=== PATIENT | male | born 1960 | race Caucasian/White ===

== ENCOUNTER 2021-02-14 20:04 | Inpatient (IN) ==
[2021-02-14] MEDS ORDERED: SODIUM CHLORIDE 0.9% 1000ML 1,000 ML IV ONE (20:45)
[2021-02-14] MEDS ORDERED: ONDANSETRON INJ 2 MG/ML 2 ML VIAL IV STA (20:45)
[2021-02-14] MEDS ORDERED: MoRPHine SULFATE 2 MG/ML CARP IV PRN (20:45)
[2021-02-14] MEDS ORDERED: PROMETHAZINE 6.25 MG/50.25 ML BAG IV STA (20:45)
--- NOTE | 2021-02-14 20:49 | Emergency Department Note ---
Impression & Plan Acute dehydration, Vomiting and diarrhea, Failure of outpatient treatment, COVID-19 ED Provider Note NAME: XAVIER LACEY AGE: 60 SEX: M : 1960 ARRIVES VIA: Walk-In INFORMANT: [Patient] ED PROVIDER(S): [Fabio Curtis MD] CHIEF COMPLAINT: Vomiting HISTORY OF PRESENT ILLNESS: The patient is a 60-year-old male who presents to the ED with vomiting. The patient was diagnosed with Covid 2 days ago. He was having a lot of GI complaints at the time. CT of the abdomen and pelvis did not show any obstruction. Patient was not having any respiratory difficulty. He was felt stable for discharge and was given Zofran to help with the symptoms. The patient presents today stating that the Zofran is not helping. He still vomiting, he still has a lot of diarrhea although, his abdominal pain is less severe. He has started coughing some but he does not feel short of breath. He has a headache, body aches and is still running a fever with chills. The patie nt states that he is afraid he is dehydrated. He states he cannot even keep water down. REVIEW OF SYSTEMS: See HPI for pertinent positives and negatives. A total of ten systems were reviewed and were otherwise negative. PMHx/PSHx: See Below SOCIAL HISTORY: See Below. PHYSICAL EXAM: GENERAL: Patient is in no acute distress. HEENT: No acute trauma, normocephalic atraumatic, mucous membranes moist, no nasal congestion, no scleral icterus. NECK: No stridor, no adenopathy, no meningismus, trachea is midline. LUNGS: Clear to auscultation bilaterally, no wheeze, no rhonchi, breath sounds equal. Occasional dry cough noted. HEART: Without murmurs gallops or rubs, regular rate and rhythm. ABDOMEN: Soft, mildly diffusely tender, bowel sounds positive, no hernias, no peritonitis. EXTREMITIES: No cyanosis or edema, full range of motion of all the joints without pain or difficulty, no signs for acute trauma. NEUROLOGIC: Oriented x 3, no acute motor or sensory deficits, no focal weakness. SKIN: No rash, no jaundice, no diaphoresis. DIFFERENTIAL DIAGNOSIS: Dehydration, electrolyte imbalance, anemia, viral illness, COVID-19, bowel obstruction, gastritis, GI bleeding, failed outpatient treatment. EMERGENCY DEPARTMENT COURSE/PROCEDURES: MEDICAL DECISION MAKING: There is no leukocytosis or concerning anemia. There is a normal platelet count. No significant electrolyte abnormality or kidney failure. No worrisome liver enzyme elevation. Abdominal series did not show pneumonia, free air or bowel obstruction. There was some gas within the bowel noted all the way down to the rectum. On my exam, the patient did not have peritonitis. He was not hypoxic or toxic in appearance. The patient was given IV Tylenol, IV morphine, IV Zofran and IV Phenergan. He was given IV saline, 1 L. Patient presents with persistent vomiting despite the Zofran already prescribed. He is still having diarrhea. He still having flulike symptoms. He is Covid positive. I do think the patient deserves a hospital stay for hydration and symptomatic care. It appears the Covid virus has caused primarily GI symptoms rather than respiratory symptoms. The patient was feeling improved after some treatment here in the ED, I did speak with the case management team, the on-call hospitalist was consulted. Past Med/Surg History Medical History No significant medical problems Social History Smoking Status: Never smoker Preferred Language: Maori Feels Safe at Home: Yes Allergies Allergies Allergy/AdvReac Type Severity Reaction Status Date / Time Penicillins Allergy Unknown HIVES Verified 02/14/21 21:18 Home Meds Home Medications Medication Instructions Recorded Confirmed acetaminophen [Tylenol Extra 1,000 mg PO Q6H PRN 02/12/21 02/14/21 Strength] Previous Rx's Medication Instructions Recorded ondansetron HCl [Zofran] 4 mg PO Q6H PRN #12 tab 02/12/21 Results & Data (ED) Vital Signs Vital Signs - 24 hr 02/14/21 20:08 02/14/21 20:58 02/14/21 21:45 Temperature 37.4 C Temperature Source Temporal Artery Scan Pulse Rate 93 H Pulse Rate [Right Finger] 81 Respiratory Rate 20 18 Respiratory Effort / Characteristics Non-Labored Spontaneous Respiratory Depth Normal Normal Blood Pressure 139/79 Blood Pressure [Right Arm] 152/90 H Blood Pressure Mean 99 Blood Pressure Mean [Right Arm] 110 Blood Pressure Position Sitting Blood Pressure Position [Right Arm] Lying Pulse Oximetry 99 95 96 Oxygen Delivery Method Room Air Room Air Room Air Sepsis Recent Fever Within 48 Hours No Sepsis New/Unexplained Change in Mental Status No Sepsis Action Taken by Nursing No Action Required Home Medications Current Medication List: was personally reviewed by me Laboratory Data Attestation: I reviewed the patient's lab results. Result diagrams: 02/14/21 20:56 02/14/21 20:56 Lab Results 02/14/21 02/14/21 Range/Units 20:56 20:56 WBC 5.91 (4.8-10.8) K/uL RBC 5.29 (4.7-6.1) M/uL Hgb 17.2 (14.0-18.0) g/dL Hct 47.6 (42-52) % MCV 90.0 (80-100) fL MCH 32.5 (25-34) pg MCHC 36.1 H (32-36) g/dL RDW Std Deviation 43.1 (36.4-46.3) fL RDW Coeff of Stacey 13.1 (11.5-14.5) % Plt Count 143 (130-400) K/uL MPV 8.6 (7.4-10.4) fL Immature Gran % (Auto) 0.2 % Neut % (Auto) 65.8 % Lymph % (Auto) 24.0 % Stark % (Auto) 9.8 % Eos % (Auto) 0.0 % Baso % (Auto) 0.2 % Neut # (Auto) 3.89 (1.4-6.5) K/uL Lymph # (Auto) 1.42 (1.2-3.4) K/uL Stark # (Auto) 0.58 (0.11-0.59) K/uL Eos # (Auto) 0.00 (0-0.5) K/uL Baso # (Auto) 0.01 (0-0.2) K/uL Immature Gran # (Auto) 0.01 (0.00-0.02) K/uL Sodium 133 L (136-145) mmol/L Potassium (3.5-5.1) mmol/L Chloride 101 (98-107) mmol/L Carbon Dioxide 25 (21-32) mmol/L Anion Gap 7.0 (3-11) BUN 10 (7-18) mg/dl Creatinine 1.05 (0.6-1.4) mg/dl Est Cr Clr Drug Dosing 77.6 ml/min Est GFR ( Amer) 89.6 Est GFR (Non-Af Amer) 77.3 BUN/Creatinine Ratio 9.4 L (10-20) Glucose 82 (70-99) mg/dl Calcium 9.0 (8.5-10.1) mg/dl Magnesium (1.8-2.4) mg/dl Total Bilirubin 0.5 (0.2-1) mg/dl AST (15-37) U/L ALT 72 (12-78) U/L Alkaline Phosphatase 130 H (45-117) U/L Total Protein 7.4 (6.4-8.2) gm/dl Albumin 3.7 (3.4-5.0) gm/dl Globulin 3.7 (2.5-4.0) gm/dl Albumin/Globulin Ratio 1.0 (0.9-2) Administered Medications Morphine Sulfate (Morphine Sulfate 2 Mg/Ml Carp) 2 mg IV Q30M PRN PRN Reason: Pain Stop: 02/28/21 20:44 Last Admin: 02/14/21 20:57 Dose: 2 mg Documented by: [id number] Discontinued Medications Sodium Chloride (Nss 1000ml) 1,000 mls @ 999 mls/hr IV .Q1H1M ONE Stop: 02/14/21 21:45 Last Admin: 02/14/21 20:57 Dose: 999 mls/hr Documented by: [id number] Promethazine HCl (Phenergan) 6.25 mg in 50.25 mls @ 201 mls/hr IV NOW STA Stop: 02/14/21 20:59 Last Admin: 02/14/21 20:57 Dose: 201 mls/hr Documented by: [id number] Ondansetron HCl (Ondansetron Inj 2 Mg/Ml 2 Ml Vial) 4 mg IV NOW STA Stop: 02/14/21 20:46 Last Admin: 02/14/21 20:57 Dose: 4 mg Documented by: [id number] Imaging Data Attestation: I personally reviewed and interpreted this imaging study as fol lows: My Impression: Abdominal series: There is no bowel obstruction, pneumonia or free air. There is gas within the large and small bowel. The gas was seen down to the rectum. Discharge Plan Visit Data Chief Complaint: Illness Stated Complaint: COVID+, NAUSEA, LOW OXYGEN LEVEL ED Provider: Fabio Curtis Discharge Problem: Acute dehydration, Vomiting and diarrhea, Failure of outpatient treatment, COVID-19 Patient Disposition: Admitted As Inpatient Condition: Good Forms Stand Alone Forms: [facility] Prescriptions Prescriptions: No Action acetaminophen [Tylenol Extra Strength] 500 mg Tablet 1,000 mg PO Q6H PRN (Reason: Pain) RF: 0 ondansetron HCl [Zofran] 4 mg tablet 4 mg PO Q6H PRN (Reason: nausea and vomiting) Qty: 12 RF: 0 Referrals Referrals: Lucian Calloway DO [Primary Care Provider] -
[2021-02-14 21:10] LABS: Basophils # (auto) 0.01 K/uL (0-0.2); Basophils % (auto) 0.2 %; Hematocrit (blood only) 47.6 % (42-52); Hemoglobin 17.2 g/dL (14.0-18.0); Immature Granulocytes # (auto) 0.01 K/uL (0.00-0.02); Immature Granulocytes % (auto) 0.2 %; Lymphocytes # (auto) 1.42 K/uL (1.2-3.4); Mean Corpuscular Hemoglobin 32.5 pg (25-34); Mean Corpuscular Hgb Conc 36.1 g/dL (32-36); Mean Platelet Volume 8.6 fL (7.4-10.4); Monocytes # (auto) 0.58 K/uL (0.11-0.59); Monocytes % (auto) 9.8 %; Neutrophils # (auto) 3.89 K/uL (1.4-6.5); Neutrophils % (auto) 65.8 %; Platelet Count 143 K/uL (130-400); RDW Coefficient of Variation 13.1 % (11.5-14.5); RDW Standard Deviation 43.1 fL (36.4-46.3); Red Blood Count 5.29 M/uL (4.7-6.1); White Blood Count 5.91 K/uL (4.8-10.8)
[2021-02-14 21:30] LABS: Albumin Level 3.7 gm/dl (3.4-5.0); BUN Creatinine Ratio 9.4 (10-20); Creatinine Clr Calc Pharmacy 77.6 ml/min; Est GFR (African American) 89.6; Est GFR (Non-African American) 77.3
[2021-02-14 21:31] LABS: Bilirubin,Total 0.5 mg/dl (0.2-1); Globulin 3.7 gm/dl (2.5-4.0); Total Protein 7.4 gm/dl (6.4-8.2)
[2021-02-14] MEDS ORDERED: PROMETHAZINE HCL 12.5 MG in SODIUM CHLORIDE 0.9% 50 ML IV PRN (21:52)
[2021-02-14] MEDS ORDERED: ACETAMINOPHEN 1,000 MG/100 ML VIAL IV PRN (21:52)
[2021-02-14 23:06] LABS: Allen Test Pos (Pos); Base Excess ABG -1.7 mEq/L (-9-1.8); HCO3 ABG 21 mmol/L (19-24); Oxygen Saturation ABG 93.6 % (90-95); PCO2 ABG 32 mmHg (35-46); PO2 ABG 64 mmHg (80-95); pH ABG 7.45 (7.35-7.45)
[2021-02-14 23:25] LABS: Potassium 3.5 mmol/L (3.5-5.1)
[2021-02-14 23:30] LABS: Magnesium 1.7 mg/dl (1.8-2.4)
[2021-02-14] MEDS ORDERED: ACETAMINOPHEN 325 MG TAB PO STA (23:47)
[2021-02-14] MEDS ORDERED: dexAMETHasone 6 MG in SYRINGE 0 ML IV STA (23:49)
--- NOTE | 2021-02-14 23:53 | History & Physical Report ---
Date of Service February 14, 2021 Assessment & Plan (1) Acute hypoxemic respiratory failure: Severe COVID-19 pneumonia with low PO2 noted on ABG Superimposed bacterial infection, no sepsis Diarrhea symptoms secondary to above rule out C. difficile hx Crohn's disease status post surgery. Medical Decadron course indicated for hypoxemia Stool C. difficile Clear liquids for now Repeat CT abdomen pelvis if abdominal pain progresses. DVT prophylaxis per Lovenox SQ Full code Text document was generated using [employer] voice recognition software. It may contain grammatical or spelling errors. Kindly contact undersigned for clarification of any documentation item in question. History of Present Illness Chief Complaint: Covid positive, nausea, vomiting, diarrhea Primary Care Prov ider: Lucian Calloway DO History obtained from patient and records. Medical history significant for Crohn's disease status post surgery. 3 days history of achy abdominal pain left-sided with dry Heaving, no emesis. Loose stools watery with low-grade fever and chills. Dry cough symptoms without chest pain and S OB.. Patient seen at the ER. Covid [address] abdomen pelvis : 1. Mild asymmetric groundglass densities of the basal right lower lobe are suggestive of an infectious or inflammatory pneumonitis. Correlate with Covid status. 2. No bowel obstruction or bowel wall thickening. 3. Colonic diverticulosis without acute diverticulitis. 4. Partial sigmoid colon resection with colocolonic anastomosis. 5. Prior cholecystectomy and appendectomy. Patient sent home from the ER. Worsening watery diarrhea symptoms with emesis the last few days, poor appetite. Belly pain not as bad as per patient. Junky cough symptoms without chest pain and shortness of breath. Lowest O2 sats at the ER 94 on room air. 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 Allergies Allergy/AdvReac Type Severity Reaction Status Date / Time Penicillins Allergy Unknown HIVES Verified 02/14/21 21:18 Home Medications Medication Instructions Recorded Confirmed Type acetaminophen [Tylenol Extra 1,000 mg PO Q6H PRN 02/12/21 02/14/21 History Strength] ondansetron HCl [Zofran] 4 mg PO Q6H PRN #12 tab 02/12/21 02/14/21 Rx Past Med/Surg History Medical History No significant medical problems Social History Smoking Status: Never smoker Hx Alcohol Use: Yes Hx Substance Use: No Preferred Language: Lithuanian Detective Required: No Beliefs That Will Affect Care: None Current Living Situation: Spouse Other Information That Helps Us Care for You: No Feels Safe at Home: Yes Safety Concerns: Feels Safe At This Time Assistive Devices: Glasses Review of Systems Review of Systems: As per HPI, all 10 systems reviewed, all other ROS negative Physical Exam Physical Exam: GENERAL: Comfortable, pleasant, looks younger for stated age, no respiratory distress SKIN: Normal color, warm HEENT: [place] palpebral conjunctivae, no ptosis, dry buccal mucosa NECK : Supple, no tenderness CHEST : CTA, no tenderness HEART : RRR, no obvious murmurs ABDOMEN: Some distention, no overt tenderness EXTREMITIES : No LE swelling/tenderness, no other conspicuous deformities noted NEUROLOGIC : Coherent, no facial asymmetry, no other gross focality Results & Data Results & Data ([facility]) Vital Signs (Past 12 Hours) Vital Signs Temp Pulse Pulse Resp BP BP Pulse Ox 02/14/21 22:36 39.3 C H 85 16 140/71 96 02/14/21 21:45 81 18 152/90 H 96 02/14/21 20:58 95 02/14/21 20:08 37.4 C 93 H 20 139/79 99 Laboratory Results Laboratory Results WBC 5.91 K/uL (4.8-10.8) 02/14/21 20:56 RBC 5.29 M/uL (4.7-6.1) 02/14/21 20:56 Hgb 17.2 g/dL (14.0-18.0) 02/14/21 20:56 Hct 47.6 % (42-52) 02/14/21 20:56 MCV 90.0 fL (80-100) 02/14/21 20:56 MCH 32.5 pg (25-34) 02/14/21 20:56 MCHC 36.1 g/dL (32-36) H 02/14/21 20:56 RDW Std Deviation 43.1 fL (36.4-46.3) 02/14/21 20:56 RDW Coeff of Stacey 13.1 % (11.5-14.5) 02/14/21 20:56 Plt Count 143 K/uL (130-400) 02/14/21 20:56 MPV 8.6 fL (7.4-10.4) 02/14/21 20:56 Immature Gran % (Auto) 0.2 % 02/14/21 20:56 Neut % (Auto) 65.8 % 02/14/21 20:56 Lymph % (Auto) 24.0 % 02/14/21 20:56 [place] % (Auto) 9.8 % 02/14/21 20:56 Eos % (Auto) 0.0 % 02/14/21 20:56 Baso % (Auto) 0.2 % 02/14/21 20:56 Neut # (Auto) 3.89 K/uL (1.4-6.5) 02/14/21 20:56 Lymph # (Auto) 1.42 K/uL (1.2-3.4) 02/14/21 20:56 [place] # (Auto) 0.58 K/uL (0.11-0.59) 02/14/21 20:56 Eos # (Auto) 0.00 K/uL (0-0.5) 02/14/21 20:56 Baso # (Auto) 0.01 K/uL (0-0.2) 02/14/21 20:56 Immature Gran # (Auto) 0.01 K/uL (0.00-0.02) 02/14/21 20:56 ABG pH 7.45 (7.35-7.45) 02/14/21 22:45 ABG pCO2 32 mmHg (35-46) L 02/14/21 22:45 ABG pO2 64 mmHg (80-95) L 02/14/21 22:45 ABG HCO3 21 mmol/L (19-24) 02/14/21 22:45 ABG O2 Saturation 93.6 % (90-95) 02/14/21 22:45 ABG Base Excess -1.7 mEq/L (-9-1.8) 02/14/21 22:45 Celestine Test Pos (Pos) 02/14/21 22:45 Barometric Pressure 734.7 mm/Hg 02/14/21 22:45 Oxygen Given ROOM AIR 02/14/21 22:45 Sodium 133 mmol/L (136-145) L 02/14/21 20:56 Potassium 3.5 mmol/L (3.5-5.1) 02/14/21 22:45 Chloride 101 mmol/L (98-107) 02/14/21 20:56 Carbon Dioxide 25 mmol/L (21-32) 02/14/21 20:56 Anion Gap 7.0 (3-11) 02/14/21 20:56 BUN 10 mg/dl (7-18) 02/14/21 20:56 Creatinine 1.05 mg/dl (0.6-1.4) 02/14/21 20:56 Est Cr Clr Drug Dosing 77.6 ml/min 02/14/21 20:56 Est GFR ( Amer) 89.6 02/14/21 20:56 Est GFR (Non-Af Amer) 77.3 02/14/21 20:56 BUN/Creatinine Ratio 9.4 (10-20) L 02/14/21 20:56 Glucose 82 mg/dl (70-99) 02/14/21 20:56 Calcium 9.0 mg/dl (8.5-10.1) 02/14/21 20:56 Magnesium 1.7 mg/dl (1.8-2.4) L 02/14/21 22:45 Total Bilirubin 0.5 mg/dl (0.2-1) 02/14/21 20:56 AST 37 U/L (15-37) 02/14/21 22:45 ALT 72 U/L (12-78) 02/14/21 20:56 Alkaline Phosphatase 130 U/L (45-117) H 02/14/21 20:56 Total Protein 7.4 gm/dl (6.4-8.2) 02/14/21 20:56 Albumin 3.7 gm/dl (3.4-5.0) 02/14/21 20:56 Globulin 3.7 gm/dl (2.5-4.0) 02/14/21 20:56 Albumin/Globulin Ratio 1.0 (0.9-2) 02/14/21 20:56 Diagnostic Findings Chest x-ray/abdominal x-ray as per my interpretation: Bibasilar infiltrates, no bowel obstruction EKG as per my interpretation : Rate 75, NSR, normal axis, incomplete RBBB, low voltage
[2021-02-15] MEDS ORDERED: DOXYCYCLINE HYCLATE 100 MG in DEXTROSE 5% 100 ML IV STA (01:08)
[2021-02-15] MEDS ORDERED: DEXAMETHASONE SOD INJ 4 MG/ML VIAL ONE (01:12)
[2021-02-15] MEDS ORDERED: ALBUTEROL HFA 8 GM INHALER INH ONE (01:35)
[2021-02-15] MEDS ORDERED: MAGNESIUM SULFATE / D5W 1 GM/100 ML BAG IV ONE (01:35)
[2021-02-15] MEDS ORDERED: POTASSIUM CHLORIDE 40 MEQ in SODIUM CHLORIDE 0.9% 1000ML 1,000 ML IV ONE (01:35)
[2021-02-15] MEDS: cefTRIAXone SODIUM 2,000 MG in DEXTROSE 5% 50 ML IV SCH (06:07)
[2021-02-15 06:48] LABS: Hematocrit (blood only) 46.9 % (42-52); Hemoglobin 16.4 g/dL (14.0-18.0); Immature Granulocytes # (auto) 0.01 K/uL (0.00-0.02); Immature Granulocytes % (auto) 0.2 %; Lymphocytes # (auto) 0.84 K/uL (1.2-3.4); Lymphocytes % (auto) 17.6 %; Mean Corpuscular Hemoglobin 31.5 pg (25-34); Mean Platelet Volume 8.8 fL (7.4-10.4); Monocytes # (auto) 0.13 K/uL (0.11-0.59); Monocytes % (auto) 2.7 %; Neutrophils # (auto) 3.79 K/uL (1.4-6.5); Neutrophils % (auto) 79.5 %; Platelet Count 130 K/uL (130-400); RDW Standard Deviation 42.7 fL (36.4-46.3); Red Blood Count 5.21 M/uL (4.7-6.1); White Blood Count 4.77 K/uL (4.8-10.8)
[2021-02-15 07:16] LABS: Albumin Level 3.5 gm/dl (3.4-5.0); BUN Creatinine Ratio 12.8 (10-20); C Reactive Protein 2.51 mg/dl (0-0.29); Calcium 8.3 mg/dl (8.5-10.1); Creatinine Clr Calc Pharmacy 97.8 ml/min; Est GFR (African American) 111.6; Est GFR (Non-African American) 96.3; Magnesium 2.3 mg/dl (1.8-2.4); Potassium 3.9 mmol/L (3.5-5.1)
[2021-02-15 07:20] LABS: Albumin Globulin Ratio 1.1 (0.9-2); Bilirubin,Total 0.3 mg/dl (0.2-1); Ferritin 1783.4 ng/ml (8-388); Globulin 3.1 gm/dl (2.5-4.0); Total Protein 6.6 gm/dl (6.4-8.2)
--- NOTE | 2021-02-15 07:21 | XRay Report ---
A PA CHEST WITH ABDOMINAL SERIES CLINICAL HISTORY: Vomiting. FINDINGS: An AP upright radiograph is compared to study dated 02/12/2021. The cardiomediastinal silhouette is un remarkable. There is mild elevation of the right hemidiaphragm. There are bibasilar airspace opacitie s. No large pleural effusion or pneumothorax is seen. The bony thorax is grossly intact. Supine and erect abdominal radiographs are correlated with abdominal CT dated 02/12/2021. Cholecystect azeem clips are noted in the right upper quadrant. There is a nonobstructed abdominal bowel gas pattern . No evidence of intraperitoneal free air is seen. There are no abnormal abdominal calcifications. Th e lumbosacral spine and bony pelvis appear intact. IMPRESSION: 1. There are bibasilar airspace opacities. This could represent atelectasis versus an infectious/infl ammatory pneumonitis. Clinical correlation will be required. 2. Nonobstructed abdominal bowel gas pattern. ACT 112: Negative or not required by law. Electronically signed by: Fabio Rodriguez M.D. 02/15/2021 7:19 AM
[2021-02-15] MEDS: ALBUTEROL HFA 8 GM INHALER INH SCH ×4 (07:53→19:19)
[2021-02-15] MEDS ORDERED: PNEUMOCOCCAL Polysaccharide Vaccine 25mcg/0.5mL vial/Syr IM ONE (08:00)
[2021-02-15] MEDS: ENOXAPARIN INJ 40 MG/0.4 ML SYR SQ SCH (08:01)
[2021-02-15] MEDS: ACETAMINOPHEN 325 MG TAB PO PRN (12:24)
--- NOTE | 2021-02-15 15:08 | Hospitalist Progress Note ---
Date of Service February 15, 2021 Assessment & Plan (1) Acute hypoxemic respiratory failure: resolved Severe COVID-19 pneumonia with low PO2 noted on ABG no hypoxia or respiratory symptoms at present remains in room air no SOB Xray of chest and abdomen : 1. There are bibasilar airspace opacities. This could represent atelectasis versus an infectious/inflammatory pneumonitis. Clinical correlation will be required. 2. Nonobstructing abdominal bowel gas pattern. elevated Ferritin , C reactive protein due to covid 19 infection cont on IV Decadron supportive care no indication for Remdesivir as no hypoxia Diarrhea symptoms secondary to COVID 19 infection: symptoms improved , only one loose BM today no nausea or abdominal pain added Lactinex /pro biotics diet advanced to solid per pt's request hx Crohn's disease status post surgery. no bowel obs noted in Xray of abdomen diarrhea due to viral illness IV fluid , advance diet as tolerated DVT prophylaxis per Lovenox SQ Full code Disposition : expected to be discharged home when medically stable Admission and Anticipated Discharge Date Admission Date: February 14, 2021 Subjective Follow up visit for COVID 19 infection with GI symptoms /viral pneumonitis : pt reports feeling a bit better since yesterday had only one episode of loose stool , no blood in stool nausea has improved, tolerating clears willing to try solid diet no fever or chills no cough or SOB , no hypoxia, Review of Systems Review of Systems: All systems reviewed & are unremarkable except as noted in Subjective Physical Exam Physical Exam: Physical exam: General: No acute distress, alert awake oriented x3 HEENT: PERRLA, EOMI, Heart: Regular S1-S2, no carotid bruit, no JVD, no lower extremity edema Lungs: Clear to auscultate, no wheeze or rales Abdomen: Soft nontender, no organomegaly Extremity: No cyanosis, no deformity, normal strength 5 out of 5 with upper and lower Neuro: No focal neurological deficit normal speech, normal visual field, Motor strength : normal both upper and lower extremity, sensation intact Psych: Alert awake oriented x3, normal affect Results & Data Results & Data ([facility]) Vital Signs (Past 12 Hours) Vital Signs Temp Pulse Resp BP Pulse Ox 02/15/21 14:59 75 20 95 02/15/21 10:54 74 20 94 02/15/21 07:56 77 18 94 02/15/21 07:23 37.1 C 86 18 114/82 95 02/15/21 03:45 36.8 C 87 17 123/79 98
[2021-02-15] MEDS ORDERED: LACTATED RINGER'S 1,000 ML IV SCH (17:00)
[2021-02-15] MEDS: DOXYCYCLINE HYCLATE 100 MG CAP PO SCH (19:54)
[2021-02-15] MEDS: LACTOBACILLUS ACIDOPHILUS 1 GM PACK PO SCH (21:22)
[2021-02-16] MEDS: ACETAMINOPHEN 325 MG TAB PO PRN ×3 (05:01→22:16)
[2021-02-16] MEDS: cefTRIAXone SODIUM 2,000 MG in DEXTROSE 5% 50 ML IV SCH (06:02)
[2021-02-16 07:14] LABS: BUN Creatinine Ratio 13.1 (10-20); C Reactive Protein 1.54 mg/dl (0-0.29); Calcium 8.3 mg/dl (8.5-10.1); Creatinine Clr Calc Pharmacy 96.2 ml/min; Est GFR (African American) 111.1; Est GFR (Non-African American) 95.8; Magnesium 1.7 mg/dl (1.8-2.4); Potassium 3.5 mmol/L (3.5-5.1)
[2021-02-16 07:27] LABS: D Dimer 230 ug/L FEU (0-500)
[2021-02-16] MEDS: LACTOBACILLUS ACIDOPHILUS 1 GM PACK PO SCH ×3 (07:32→17:02)
[2021-02-16] MEDS ORDERED: ALBUTEROL HFA 8 GM INHALER INH PRN (07:52)
[2021-02-16] MEDS: ALBUTEROL HFA 8 GM INHALER INH SCH (08:19)
[2021-02-16] MEDS: DOXYCYCLINE HYCLATE 100 MG CAP PO SCH (08:24)
[2021-02-16] MEDS: ENOXAPARIN INJ 40 MG/0.4 ML SYR SQ SCH ×2 (08:25→08:28)
[2021-02-16] MEDS ORDERED: dexAMETHasone 6 MG in SYRINGE 0 ML IV SCH (09:00)
[2021-02-16] MEDS ORDERED: MAGNESIUM SULFATE / D5W 1 GM/100 ML BAG IV ONE (14:00)
--- NOTE | 2021-02-16 17:52 | Hospitalist Progress Note ---
Date of Service February 16, 2021 Assessment & Plan (1) Acute hypoxemic respiratory failure: resolved on presentation Severe COVID-19 pneumonia with low PO2 noted on ABG no hypoxia or respiratory symptoms at present remains in room air no SOB Xray of chest and abdomen : 1. There are bibasilar airspace opacities. This could represent atelectasis versus an infectious/inflammatory pneumonitis. Clinical correlation will be required. 2. Nonobstructing abdominal bowel gas pattern. elevated Ferritin , C reactive protein due to covid 19 infection -level has improved will DC Abx was started on IV Decadron -having persisted GI symptoms -nausea -possible due to steroid ? dc Decadron for now supportive care no indication for Remdesivir as no hypoxia Diarrhea symptoms secondary to COVID 19 infection: ongoing diarrhea with nausea /abdominal discomfort worsening nausea with Lactinex /pro biotics-ordered to on hold very poor appetite , pt is asked to try liquid diet if he prefers hx Crohn's disease status post surgery. no bowel obs noted in Xray of abdomen stable DVT prophylaxis per Lovenox SQ Full code Disposition : expected to be discharged home when medically stable Admission and Anticipated Discharge Date Admission Date: February 14, 2021 Subjective Follow up visit for COVID 19 infection with GI symptoms /viral pneumonitis : pt reports of worsening of GI symptoms /not feeling well poor appetite , persistent nausea , abdominal discomfort Pro Biotic made his stomach upset worse no fever or chills no cough has diarrhea /loose stool multiple times today Review of Systems Review of Systems: As per HPI, all 10 systems reviewed, all other ROS negative Physical Exam Physical Exam: Physical exam: General: No acute distress, alert awake oriented x3 HEENT: PERRLA, EOMI, Heart: Regular S1-S2, no carotid bruit, no JVD, no lower extremity edema Lungs: Clear to auscultate, no wheeze or rales Abdomen: Soft nontender, no organomegaly Extremity: No cyanosis, no deformity, normal strength 5 out of 5 with upper and lower Neuro: No focal neurological deficit normal speech, normal visual field, Motor strength : normal both upper and lower extremity, sensation intact Psych: Alert awake oriented x3, normal affect Results & Data Results & Data ([facility]) Vital Signs (Past 12 Hours) Vital Signs Temp Pulse Resp BP Pulse Ox 02/16/21 16:08 36.6 C 74 18 121/81 96 02/16/21 11:45 36.9 C 77 18 111/72 96 02/16/21 07:42 37.0 C 86 18 106/71 94
[2021-02-16] MEDS: D5W AND NSS 1,000 ML IV SCH (20:40)
[2021-02-16] MEDS: ONDANSETRON INJ 2 MG/ML 2 ML VIAL IV PRN (22:16)
[2021-02-17] MEDS: D5W AND NSS 1,000 ML IV SCH (06:39)
[2021-02-17] MEDS: ACETAMINOPHEN 325 MG TAB PO PRN (07:48)
[2021-02-17] MEDS: ONDANSETRON INJ 2 MG/ML 2 ML VIAL IV PRN (07:48)
[2021-02-17] MEDS: ENOXAPARIN INJ 40 MG/0.4 ML SYR SQ SCH (07:49)
[2021-02-17] MEDS ORDERED: guaiFENesin/DEXTROM SYRUP 100MG/10MG 5ML UDC PO PRN (09:23)
[2021-02-17] MEDS ORDERED: PROCHLORPERAZINE 10 MG in SYRINGE 8 ML IV PRN (09:36)
[2021-02-17 09:57] LABS: Basophils # (auto) 0.01 K/uL (0-0.2); Basophils % (auto) 0.1 %; Hematocrit (blood only) 40.9 % (42-52); Hemoglobin 14.8 g/dL (14.0-18.0); Immature Granulocytes # (auto) 0.01 K/uL (0.00-0.02); Immature Granulocytes % (auto) 0.1 %; Lymphocytes % (auto) 12.5 %; Mean Corpuscular Volume 88.5 fL (80-100); Mean Platelet Volume 8.8 fL (7.4-10.4); Monocytes # (auto) 0.46 K/uL (0.11-0.59); Monocytes % (auto) 5.8 %; Neutrophils % (auto) 81.5 %; Platelet Count 167 K/uL (130-400); RDW Coefficient of Variation 13.1 % (11.5-14.5); RDW Standard Deviation 42.4 fL (36.4-46.3); Red Blood Count 4.62 M/uL (4.7-6.1); White Blood Count 7.98 K/uL (4.8-10.8)
[2021-02-17 10:05] LABS: D Dimer 300 ug/L FEU (0-500)
[2021-02-17] MEDS ORDERED: OPTIRAY 320 125ml IV ONE (10:13)
[2021-02-17 10:23] LABS: BUN Creatinine Ratio 15.8 (10-20); Calcium 7.9 mg/dl (8.5-10.1); Creatinine Clr Calc Pharmacy 90.3 ml/min; Est GFR (Non-African American) 93.2; Magnesium 1.9 mg/dl (1.8-2.4); Potassium 3.3 mmol/L (3.5-5.1)
[2021-02-17 10:26] LABS: Albumin Globulin Ratio 0.9 (0.9-2); Bilirubin,Total 0.4 mg/dl (0.2-1); Globulin 3.2 gm/dl (2.5-4.0); Phosphorus 1.9 mg/dl (2.5-4.9); Total Protein 6.2 gm/dl (6.4-8.2)
--- NOTE | 2021-02-17 10:31 | CT Scan Report ---
CT abd pelvis IV con only CLINICAL HISTORY: Abdominal pain. Possible bowel obstruction. Covid positive patient. COMPARISON STUDY: February 12, 2021 TECHNIQUE: The patient was scanned in a dynamic helical fashion during intravenous administration of 118 cc of Optiray 320. A dose lowering technique was utilized adhering to the principles of ALARA. CT DOSE: FINDINGS: Lower chest: There are multifocal pulmonary airspace opacities consistent with a multifocal pneumonia . Liver: The contrast-enhanced liver is normal in size, contour, and attenuation. There is no intrahepa tic biliary ductal dilatation. The hepatic veins and portal veins are patent. Gallbladder: Surgically absent Spleen: Normal in size and attenuation. Pancreas: Unremarkable. Adrenal glands: Unremarkable. Kidneys: There are bilateral renal cysts the largest of which is located on the right measuring 33 mm . There is no hydronephrosis Bowel: There are no transition zones to indicate bowel obstruction. There is a surgical anastomotic s uture line within the sigmoid. There is no evidence of acute diverticulitis. By history the appendix is surgically absent. Peritoneum: There is no intraperitoneal free air or abdominal ascites. There is a small fat-containin g umbilical hernia. Vasculature: The abdominal aorta is normal in course and caliber. Adenopathy: None. Pelvic viscera: The bladder, and pelvic viscera are unremarkable. Skeletal structures: There is gas present within the left anterior abdominal wall likely secondary to an injection site. IMPRESSION: 1. No evidence of bowel obstruction. No evidence of free air 2. Surgically absent appendix. No evidence of acute diverticulitis 3. Bilateral pulmonary airspace opacities consistent with a multifocal pneumonia ACT 112: Negative or not required by law. Electronically signed by: Balwinder Campoverde M.D. 02/17/2021 10:29 AM
[2021-02-17 10:47] LABS: Mean Corpuscular Hgb Conc 36.2 g/dL (32-36)
[2021-02-17] MEDS: DOXYCYCLINE HYCLATE 100 MG in DEXTROSE 5% 100 ML IV SCH ×2 (10:50→21:40)
--- NOTE | 2021-02-17 11:00 | CT Scan Report ---
CT angio chest PE protocol CT DOSE: 1245.34 mGycm HISTORY: 60 years-old Male with PE. Acute cough with shortness of breath. COVID Positive. TECHNIQUE: Multiple CTA images of the chest were obtained after the intravenous administration of 118 ml Optiray 320. Coronal and sagittal MIPS were obtained from the axial data set and were submitted for review. All measurements were obtained according to NASCET criteria. A dose lowering technique w as utilized adhering to the principles of ALARA. COMPARISON: CT abdomen and pelvis of same day, chest radiograph 02/12/2021 FINDINGS: CTA: Mild cardiomegaly. No pericardial effusion. No thoracic aortic aneurysm or dissection. Patency of the imaged great vessels. Unremarkable pulmonary artery. No pulmonary emboli identified. CT CHEST: Unremarkable thyroid. Enlarged right hilar lymph node, 1.3 cm. Subcentimeter prominent mediastinal an d left hilar lymph nodes measure up to 8-9 mm. No pneumothorax, pleural effusion or overt pulmonary e flora. Multifocal patchy groundglass and airspace peripheral and subpleural predominant opacities are noted within a multilobar distribution. Calcified granuloma of the left upper lobe. Central airways a re patent. No pneumoperitoneum. Cholecystectomy. Suggested hepatic steatosis. Unremarkable soft tissues. No acut e fracture. IMPRESSION: 1. No pulmonary emboli. 2. Bilateral peripheral and subpleural predominant groundglass and airspace opacities compatible with viral pneumonia. 3. Mild likely reactive adenopathy. 4. No pleural effusion. ACT 112: Negative or not required by law. The above report was generated using voice recognition software. It may contain grammatical, syntax o r spelling errors. Electronically signed by: Christophe Daley M.D. 02/17/2021 10:58 AM
[2021-02-17] MEDS ORDERED: POTASSIUM PHOS 3 MMOL/1 ML INFUSION IV STA (11:36)
--- NOTE | 2021-02-17 11:46 | Communication Note ---
Date of Service: February 17, 2021 pt continued to experience severe nausea , poor appetite developed cough no febrile episode so far CT chest and CT abdomen/pelvis ordered result reviewed ; no PE on CTA of chest , bilateral ground glass opacities confirms COVID 19 pneumonia resume IV Decadron cont Doxycycline for possible superimposed bacterial infection D/w [facility] pt will be started on IV Remdesivir-5 days tx 200 mg IV X1 day one then 200 mg daily for X4 days clinically pt does not evidence of progressive COVID 19 pneumonia /with out addition of Remdesivir can get worsening viral pneumonia /resp failure will also put consult for Yeimy ROGEL for further recommendations plan of care updated to pt over phone Roma Herndon MD
[2021-02-17] MEDS ORDERED: REMDESIVIR 200 MG in SODIUM CHLORIDE 0.9% 210 ML IV STA (11:54)
[2021-02-17] MEDS ORDERED: ACETAMINOPHEN HOME PACK 500 MG TABLET PO PRN (12:13)
[2021-02-17] MEDS ORDERED: POTASSIUM PHOSPHATE 9 MMOL in SODIUM CHLORIDE 0.9% 250 ML IV ONE (12:15)
[2021-02-17] MEDS: dexAMETHasone 6 MG in SYRINGE 0 ML IV SCH (12:58)
[2021-02-17] MEDS: ZINC SULFATE 220 MG CAPSULE PO SCH (12:58)
[2021-02-17] MEDS: POT PHOSPHATE MONOBASIC W/ SOD TAB PO SCH ×3 (12:59→21:40)
[2021-02-17] MEDS: CEROVITE ADV FORMULA TAB PO SCH (12:59)
[2021-02-17] MEDS ORDERED: D5NSS + 20MEQ KCL 20 MEQ/1,000 ML BAG IV SCH ×2 (15:15→15:45)
--- NOTE | 2021-02-17 16:19 | Hospitalist Progress Note ---
Date of Service February 17, 2021 Assessment & Plan (1) Acute hypoxemic respiratory failure: Severe COVID-19 pneumonia with low PO2 noted on ABG CT chest and CT abdomen/pelvis : result reviewed ; no PE on CTA of chest , bilateral ground glass opacities confirms COVID 19 pneumonia D/w [facility] pt will be started on IV Remdesivir-5 days tx 200 mg IV X1 day one then 200 mg daily for X4 days clinically pt have evidence of progressive COVID 19 pneumonia /with out addition of Remdesivir can get worsening viral pneumonia /resp failure consulted [facility] ID for further recommendations cont Doxycycline for possible superimposed bacterial infection Low K /Low phos : possible due to GI loss ordered for IV replacement repeat lab in AM given risk for cardiac arrhythmia with significant electrolyte abnormality pt will be placed on transmitter chief pt continued to experience severe nausea , poor appetite developed cough no febrile episode so far Diarrhea symptoms secondary to COVID 19 infection: ongoing diarrhea with nausea /abdominal discomfort worsening nausea with Lactinex /pro biotics-ordered to on hold very poor appetite , pt is asked to try liquid diet CT abdomen shows no obstruction of inflammation hx Crohn's disease status post surgery. no bowel obs noted in Xray of abdomen Ct abdomen as above DVT prophylaxis per Lovenox SQ Full code Disposition : cont to monitor in Tele Moderate to severe COVID 19 pneumonia Admission and Anticipated Discharge Date Admission Date: February 14, 2021 Subjective Follow up visit for COVID 19 infection with GI symptoms /viral pneumonitis : febrile episodes for past 24 hrs feels worse than before persistent cough and GI symptoms Review of Systems Constitutional: + fever Physical Exam Physical Exam: Physical exam: General: No acute distress, alert awake oriented x3 HEENT: PERRLA, EOMI, Heart: Regular S1-S2, no carotid bruit, no JVD, no lower extremity edema Lungs: + rales at base Abdomen: Soft nontender, no organomegaly Extremity: No cyanosis, no deformity, normal strength 5 out of 5 with upper and lower Neuro: No focal neurological deficit normal speech, normal visual field, Motor strength : normal both upper and lower extremity, sensation intact Psych: Alert awake oriented x3, normal affect Results & Data Results & Data ([facility]) Vital Signs (Past 12 Hours) Vital Signs Temp Pulse Resp BP Pulse Ox Pulse Ox 02/17/21 15:00 37.6 C H 88 18 128/83 94 02/17/21 10:53 37.2 C 84 18 109/72 92 02/17/21 07:37 37.7 C H 101 H 18 134/82 96 02/17/21 07:00 95
[2021-02-17] MEDS: ACETAMINOPHEN 500 MG TAB PO SCH ×2 (17:45→23:46)
[2021-02-17] MEDS: SODIUM CHLORIDE 0.9% 10ML FLUSH IV SCH (18:18)
[2021-02-17] MEDS: guaiFENesin 600 MG TABCR PO SCH (21:40)
[2021-02-18] MEDS: ACETAMINOPHEN 500 MG TAB PO SCH ×2 (06:04→13:02)
[2021-02-18] MEDS: DOXYCYCLINE HYCLATE 100 MG in DEXTROSE 5% 100 ML IV SCH (08:01)
[2021-02-18] MEDS: DOXYCYCLINE HYCLATE 100 MG CAP PO SCH ×2 (08:08→20:44)
[2021-02-18] MEDS: POT PHOSPHATE MONOBASIC W/ SOD TAB PO SCH ×2 (08:09→13:02)
[2021-02-18] MEDS: guaiFENesin 600 MG TABCR PO SCH ×2 (08:09→20:43)
[2021-02-18] MEDS: CEROVITE ADV FORMULA TAB PO SCH (08:09)
[2021-02-18] MEDS: ENOXAPARIN INJ 40 MG/0.4 ML SYR SQ SCH (08:10)
[2021-02-18] MEDS: ZINC SULFATE 220 MG CAPSULE PO SCH (08:11)
[2021-02-18 08:15] LABS: D Dimer 400 ug/L FEU (0-500)
[2021-02-18 08:19] LABS: BUN Creatinine Ratio 21.2 (10-20); Calcium 8.5 mg/dl (8.5-10.1); Creatinine Clr Calc Pharmacy 117.8 ml/min; Est GFR (African American) 120.4; Est GFR (Non-African American) 103.9; Potassium 3.7 mmol/L (3.5-5.1)
--- NOTE | 2021-02-18 08:35 | XRay Report ---
XR chest 1V portable CLINICAL HISTORY: cough/COVID 19 pneumonia COMPARISON STUDY: 02/14/2021 FINDINGS: The heart is borderline enlarged. There is slight progression in the bilateral pulmonary ai rspace opacities consistent with a multifocal pneumonia. There are no significant pleural effusions. There is no failure.[ IMPRESSION: Slight progression in the bilateral pulmonary airspace opacities consistent with a multif ocal pneumonia. ACT 112: Negative or not required by law. Electronically signed by: Balwinder Campoverde M.D. 02/18/2021 8:34 AM
[2021-02-18 08:46] LABS: Albumin Globulin Ratio 0.9 (0.9-2); Bilirubin,Total 0.4 mg/dl (0.2-1); Globulin 3.3 gm/dl (2.5-4.0); Phosphorus 2.7 mg/dl (2.5-4.9); Total Protein 6.3 gm/dl (6.4-8.2)
[2021-02-18] MEDS: dexAMETHasone 6 MG in SYRINGE 0 ML IV SCH (11:46)
[2021-02-18] MEDS: REMDESIVIR 100 MG in SODIUM CHLORIDE 0.9% 230 ML IV SCH (11:47)
[2021-02-18] MEDS: SODIUM CHLORIDE 0.9% 10ML FLUSH IV SCH (12:49)
[2021-02-18] MEDS ORDERED: ACETAMINOPHEN 325 MG TAB PO PRN (15:16)
--- NOTE | 2021-02-18 18:41 | Hospitalist Progress Note ---
Date of Service February 18, 2021 Assessment & Plan (1) Acute hypoxemic respiratory failure: Severe COVID-19 pneumonia with low PO2 noted on ABG CT chest and CT abdomen/pelvis : no PE on CTA of chest , bilateral ground glass opacities confirms COVID 19 pneumonia started on IV Remdesivir-5 days tx clinically pt have evidence of progressive COVID 19 pneumonia /with out addition of Remdesivir can get worsening viral pneumonia /resp failure consulted [employer] ID for further recommendations cont Doxycycline for possible superimposed bacterial infection Low K /Low phos : possible due to GI loss replaced improvement of GI symptoms at present Diarrhea symptoms secondary to COVID 19 infection: symptoms improved CT abdomen shows no obstruction of inflammation hx Crohn's disease status post surgery. no bowel obs noted in Xray of abdomen Ct abdomen as above DVT prophylaxis per Lovenox SQ Full code Disposition : cont to monitor in Tele Admission and Anticipated Discharge Date Admission Date: February 14, 2021 Subjective Follow up visit for COVID 19 infection with GI symptoms /viral pneumonitis : feels much better today no nausea /tolerating solid diet has been afebrile for past 24 hrs Review of Systems Review of Systems: As per HPI, all 10 systems reviewed, all other ROS negative Constitutional: + fever Physical Exam Physical Exam: Physical exam: General: No acute distress, alert awake oriented x3 HEENT: PERRLA, EOMI, Heart: Regular S1-S2, no carotid bruit, no JVD, no lower extremity edema Lungs: + rales at base Abdomen: Soft nontender, no organomegaly Extremity: No cyanosis, no deformity, normal strength 5 out of 5 with upper and lower Neuro: No focal neurological deficit normal speech, normal visual field, Motor strength : normal both upper and lower extremity, sensation intact Psych: Alert awake oriented x3, normal affect Results & Data Results & Data ([facility]) Vital Signs (Past 12 Hours) Vital Signs Temp Pulse Pulse Resp BP Pulse Ox Pulse Ox 02/18/21 15:22 62 02/18/21 15:08 36.6 C 80 18 135/84 96 02/18/21 11:10 36.9 C 74 18 131/79 94 02/18/21 08:25 66 02/18/21 07:09 36.9 C 74 18 131/82 92 02/18/21 07:00 91
[2021-02-19 06:58] LABS: BUN Creatinine Ratio 23.3 (10-20); Calcium 8.6 mg/dl (8.5-10.1); Creatinine Clr Calc Pharmacy 110.3 ml/min; Est GFR (African American) 117.7; Est GFR (Non-African American) 101.5; Potassium 3.7 mmol/L (3.5-5.1)
[2021-02-19 07:15] LABS: Ferritin 1983.9 ng/ml (8-388); Phosphorus 2.8 mg/dl (2.5-4.9)
[2021-02-19] MEDS: ENOXAPARIN INJ 40 MG/0.4 ML SYR SQ SCH (07:38)
[2021-02-19] MEDS: DOXYCYCLINE HYCLATE 100 MG CAP PO SCH ×2 (08:13→20:57)
[2021-02-19] MEDS: guaiFENesin 600 MG TABCR PO SCH ×2 (08:13→20:57)
[2021-02-19] MEDS: CEROVITE ADV FORMULA TAB PO SCH (08:13)
[2021-02-19] MEDS: ZINC SULFATE 220 MG CAPSULE PO SCH (08:14)
[2021-02-19] MEDS: PANTOprazole 40 MG TAB PO SCH (08:20)
[2021-02-19] MEDS: dexAMETHasone 4 MG TAB PO SCH (08:59)
[2021-02-19] MEDS: REMDESIVIR 100 MG in SODIUM CHLORIDE 0.9% 230 ML IV SCH (11:42)
--- NOTE | 2021-02-19 12:58 | Hospitalist Progress Note ---
Date of Service February 19, 2021 Assessment & Plan (1) Acute hypoxemic respiratory failure: Severe COVID-19 pneumonia with low PO2 noted on ABG clinically continues to improve after starting on Remdesivir no hypoxia, no SOB , has non productive cough CT chest and CT abdomen/pelvis : no PE on CTA of chest , bilateral ground glass opacities confirms COVID 19 pneumonia started on IV Remdesivir-( on #3/5 days tx ) pt is encouraged for prone ventilation and use incentive spirometry cont Doxycycline for possible superimposed bacterial infection Low K /Low phos : possible due to GI loss remains normal GI symptoms : nausea /vomiting has resolved Diarrhea symptoms secondary to COVID 19 infection: symptoms improved CT abdomen shows no obstruction of inflammation hx Crohn's disease status post surgery. no bowel obs noted in Xray of abdomen Ct abdomen as above DVT prophylaxis per Lovenox SQ Full code Disposition : plan for dc home in next 2 days after completion of IV remdesivir Admission and Anticipated Discharge Date Admission Date: February 14, 2021 Subjective Follow up visit for COVID 19 infection with GI symptoms /viral pneumonitis : clinically continues to improve in good spirit , energy level has continued to improve nausea/abdominal discomfort has resolved , tolerating diet no SOB or hypoxia has cough with productive sputum , no fever or chills no chest pain Review of Systems Review of Systems: All systems reviewed & are unremarkable except as noted in Subjective Physical Exam Physical Exam: Physical exam: General: No acute distress, alert awake oriented x3 HEENT: PERRLA, EOMI, Heart: Regular S1-S2, no carotid bruit, no JVD, no lower extremity edema Lungs: + rales at base Abdomen: Soft nontender, no organomegaly Extremity: No cyanosis, no deformity, normal strength 5 out of 5 with upper and lower Neuro: No focal neurological deficit normal speech, normal visual field, Motor strength : normal both upper and lower extremity, sensation intact Psych: Alert awake oriented x3, normal affect Results & Data Results & Data ([facility]) Vital Signs (Past 12 Hours) Vital Signs Temp Pulse Pulse Resp BP Pulse Ox Pulse Ox 02/19/21 07:32 36.6 C 59 L 18 129/82 94 02/19/21 07:30 65 02/19/21 07:00 94 02/19/21 03:48 36.8 C 63 18 126/80 96
[2021-02-19] MEDS: SODIUM CHLORIDE 0.9% 10ML FLUSH IV SCH (13:02)
[2021-02-20 07:44] LABS: Creatinine Clr Calc Pharmacy 110.3 ml/min; Est GFR (African American) 117.7; Est GFR (Non-African American) 101.5
[2021-02-20 07:48] LABS: Ferritin 1988.7 ng/ml (8-388)
[2021-02-20] MEDS: DOXYCYCLINE HYCLATE 100 MG CAP PO SCH ×2 (09:01→21:28)
[2021-02-20] MEDS: PANTOprazole 40 MG TAB PO SCH (09:01)
[2021-02-20] MEDS: guaiFENesin 600 MG TABCR PO SCH ×2 (09:02→21:28)
[2021-02-20] MEDS: ENOXAPARIN INJ 40 MG/0.4 ML SYR SQ SCH (09:02)
[2021-02-20] MEDS: dexAMETHasone 4 MG TAB PO SCH (09:04)
[2021-02-20] MEDS: CEROVITE ADV FORMULA TAB PO SCH (09:05)
[2021-02-20] MEDS: ZINC SULFATE 220 MG CAPSULE PO SCH (09:06)
--- NOTE | 2021-02-20 10:15 | Communication Note ---
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
[2021-02-20] MEDS: REMDESIVIR 100 MG in SODIUM CHLORIDE 0.9% 230 ML IV SCH (11:47)
[2021-02-20] MEDS: SODIUM CHLORIDE 0.9% 10ML FLUSH IV SCH (13:19)
--- NOTE | 2021-02-20 23:59 | Hospitalist Progress Note ---
Date of Service February 20, 2021 Assessment & Plan (1) Acute hypoxemic respiratory failure: Severe COVID-19 pneumonia with low PO2 noted on ABG clinically continues to improve after starting on Remdesivir no hypoxia, no SOB , has non productive cough CT chest and CT abdomen/pelvis : no PE on CTA of chest , bilateral ground glass opacities confirms COVID 19 pneumonia on IV Remdesivir-( on #4/5 days tx ) Clinically has been asymptomatic for past 48 hrs, no fever or chills , no GI symptoms plan is to discharge home tomorrow after last dose of Remdesivir in AM Diarrhea symptoms secondary to COVID 19 infection: no diarrhea for last [address] abdomen shows no obstruction of inflammation hx Crohn's disease status post surgery. no bowel obs noted in Xray of abdomen Ct abdomen as above DVT prophylaxis per Lovenox SQ Full code Disposition : plan to dc home in am Admission and Anticipated Discharge Date Admission Date: February 14, 2021 Subjective Follow up visit for COVID 19 infection with GI symptoms /viral pneumonitis : does not have any symptoms of fever , minimum dry non productive cough feels fine , energy back to baseline plan is to discharge home tomorrow after last dose of Remdesivir in am Review of Systems Review of Systems: All systems reviewed & are unremarkable except as noted in Subjective Results & Data Results & Data ([facility]) Vital Signs (Past 12 Hours) Vital Signs Temp Pulse Resp BP Pulse Ox 02/20/21 23:29 36.6 C 18 127/84 98 02/20/21 15:16 36.6 C 66 20 139/86 96
[2021-02-21 06:58] LABS: Creatinine Clr Calc Pharmacy 123.8 ml/min; Est GFR (African American) 123.4; Est GFR (Non-African American) 106.5
[2021-02-21 07:10] LABS: Ferritin 2269.2 ng/ml (8-388)
[2021-02-21] MEDS: REMDESIVIR 100 MG in SODIUM CHLORIDE 0.9% 230 ML IV SCH (08:23)
[2021-02-21] MEDS: DOXYCYCLINE HYCLATE 100 MG CAP PO SCH (08:29)
[2021-02-21] MEDS: CEROVITE ADV FORMULA TAB PO SCH (08:29)
[2021-02-21] MEDS: PANTOprazole 40 MG TAB PO SCH (08:29)
[2021-02-21] MEDS: dexAMETHasone 4 MG TAB PO SCH (08:30)
[2021-02-21] MEDS: ZINC SULFATE 220 MG CAPSULE PO SCH (08:30)
[2021-02-21] MEDS: guaiFENesin 600 MG TABCR PO SCH (08:31)
[2021-02-21] MEDS: ENOXAPARIN INJ 40 MG/0.4 ML SYR SQ SCH (09:36)
[2021-02-21] MEDS: SODIUM CHLORIDE 0.9% 10ML FLUSH IV SCH (09:36)
--- NOTE | 2021-02-21 11:59 | Communication Note ---
Date of Service: February 21, 2021 Pt is more than 10 days form onset of symptoms for COVID 19 infection has been symptoms free for past 48 hrs Based on the CDC guidelines, this patient no longer requires transmission-based precautions (i.e., airborne precautions, contact precautions, and negative air pressure room) for COVID. will be discharged home today does not need to be in strict home quarantine /isolation after discharge pt is encouraged to continue to wear face mask , observe social distancing , wash hands frequently with soap and water or utilize alcohol based hand sanit kumar Herndon MD
--- NOTE | 2021-02-21 13:11 | Discharge Summary ---
Date of Service February 21, 2021 Admission HPI Per Admitting Provider History obtained from patient and records. Medical history significant for Crohn's disease status post surgery. 3 days history of achy abdominal pain left-sided with dry Heaving, no emesis. Loose stools watery with low-grade fever and chills. Dry cough symptoms without chest pain and S OB.. Patient seen at the ER. Covid [address] abdomen pelvis : 1. Mild asymmetric groundglass densities of the basal right lower lobe are suggestive of an infectious or inflammatory pneumonitis. Correlate with Covid status. 2. No bowel obstruction or bowel wall thickening. 3. Colonic diverticulosis without acute diverticulitis. 4. Partial sigmoid colon resection with colocolonic anastomosis. 5. Prior cholecystectomy and appendectomy. Patient sent home from the ER. Worsening watery diarrhea symptoms with emesis the last few days, poor appetite. Belly pain not as bad as per patient. Junky cough symptoms without chest pain and shortness of breath. Lowest O2 sats at the ER 94 on room air. 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 COVID 19 PNEUMONIA Discharge Exam Physical exam: General: No acute distress, alert awake oriented x3 HEENT: PERRLA, EOMI, Heart: Regular S1-S2, no carotid bruit, no JVD, no lower extremity edema Lungs: Clear to auscultate, no wheeze or rales Abdomen: Soft nontender, no organomegaly Extremity: No cyanosis, no deformity, normal strength 5 out of 5 with upper and lower Neuro: No focal neurological deficit normal speech, normal visual field, Motor strength : normal both upper and lower extremity, sensation intact Psych: Alert awake oriented x3, normal affect Discharge Data Allergies Allergy/AdvReac Type Severity Reaction Status Date / Time Penicillins Allergy Unknown HIVES Verified 02/14/21 21:18 Consultations 02/14/21 21:52 ED Decision to Admit Stat 02/17/21 11:55 Consult Infectious Diseases Routine Ordered Studies 02/17/21 09:38 CT angio chest PE protocol Urgent 02/17/21 09:40 CT abd pelvis IV con only Urgent Hospital Course (1) Acute hypoxemic respiratory failure: Severe COVID-19 pneumonia with low PO2 noted on ABG clinically continues to improve after starting on Remdesivir no hypoxia, no SOB , has non productive cough CT chest and CT abdomen/pelvis : no PE on CTA of chest , bilateral ground glass opacities confirms COVID 19 pneumonia completed IV Remdesivir-( on #5 /5 days tx ) Clinically has been asymptomatic for past 48 hrs, no fever or chills , no GI symptoms energy level has improved, normal appetite , no further episode of loose stool stable to be discharged home today Diarrhea symptoms secondary to COVID 19 infection: no diarrhea for last [address] abdomen shows no obstruction of inflammation hx Crohn's disease status post surgery. no bowel obs noted in Xray of abdomen Ct abdomen as above DVT prophylaxis per Lovenox SQ Full code Disposition : Discharged home today Total Time Total Time Spent Total Time Spent (In Minutes): 30 mins Total Time Includes: Discharge Planning and Medication Reconciliation Discharge Plan Discharge Items Patient Disposition: Home - Self-Care Reason For Visit: RESP FAILURE, COVID Discharge Diagnosis: * COVID 19 PNEUMONIA Condition on Discharge: Good Activity: Resume your previous activity Non-emergency contact: Primary Care Provider Call non-emergency contact if: you have any medication questions Follow-up/Referrals: Lucian Calloway DO [Primary Care Provider] - 02/23/21 3:00 pm (Date & Time 02/23/2021 3:00 PM Provider uLcian Calloway DO Department General Internal Medicine [facility] PLEASE NOTE THAT THIS IS A TELEVIDEO APPOINTMENT. PLEASE FOLLOW THE INSTRUCTIONS PROVIDED IN YOUR EMAIL. IF YOU HAVE ANY QUESTIONS REGARDING THIS APPOINTMENT, PLEASE CALL ) Diet: Low Fiber Addtl Attending Provider Instructions: Please take all medications as instructed on discharge list below. It is recommended that you follow-up with your primary care physician within 1-2 weeks of hospital discharge to ensure you are still doing well. Please call if you have any questions or problems. 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 or wash your hand with soap and water frequently Pending Studies at Discharge: No Stand-Alone Forms: My [facility], Smoking Cessation Medications and DC Order Prescriptions: New Floranex 100 million cell Granules In Packet 1 g PO TIDM Qty: 0 RF: 0 doxycycline hyclate 100 mg Capsule 100 mg PO BID Qty: 6 RF: 0 dexamethasone 4 mg Tablet 6 mg PO DAILY Qty: 5 RF: 0 zinc sulfate [Orazinc] 50 mg zinc (220 mg) Capsule 220 mg PO QAM Qty: 30 RF: 0 famotidine 20 mg tablet 20 mg PO DAILY Qty: 14 RF: 0 Continued acetaminophen [Tylenol Extra Strength] 500 mg Tablet 1,000 mg PO Q6H PRN (Reason: Pain) RF: 0 ondansetron HCl [Zofran] 4 mg tablet 4 mg PO Q6H PRN (Reason: nausea and vomiting) Qty: 12 RF: 0 Discharge Orders: Discharge Order (Routine); Ordered 02/21/21 Ordered By: Roma Lutz/Other Patient Handouts: Low-Fiber Diet Admission Data Admit Date/Time: 02/14/21 23:56 Attending Provider: Roma Herndon Admit Provider: Nicholas Cruz Primary Care Provider: Lucian Calloway Other Providers: Nicholas Cruz ; Anatoliy Roberts ; Daja Velasco ; Steven Soto I. ; Rick Mcclure II ; Maureen Churchill ; Otilio Collins Other Interventions: Discharge Summary Assessment (RN) Last Done: 02/21/21 12:00
== END 2021-02-21 13:02 | disposition home or self-care (01) | DRG 177 ==
LOC: ED 20:04 → SUATTDRO 23:56 → 2S 23:56

== ENCOUNTER 2025-05-13 12:07 | Inpatient (IN) ==
[2025-05-13] MEDS: SODIUM CHLORIDE 0.9% 1,000 ML IV ONE (12:28)
[2025-05-13] MEDS: ONDANSETRON INJ 2 MG/ML 2 ML VIAL IV STA ×2 (12:32→14:04)
[2025-05-13] MEDS: MoRPHine SULFATE 10 MG/ML CARP/VIAL IV STA (12:32)
[2025-05-13 12:57] LABS: Albumin Globulin Ratio 1.9 (0.9-2); Bilirubin,Total 0.7 mg/dl (0.2-1.0); Calcium 10.3 mg/dl (8.6-10.3); Creatinine Clr Calc Pharmacy 88.5 ml/min; Globulin 2.7 gm/dl (2.5-4.0); Potassium 4.1 mmol/L (3.5-5.1); Total Protein 7.7 gm/dl (6.0-8.3)
[2025-05-13] MEDS: OPTIRAY 320 100ml IV ONE (13:08)
--- NOTE | 2025-05-13 13:29 | CT Scan Report ---
ABDOMEN AND PELVIS CT WITH IV CONTRAST CT DOSE: 1303.25 mGy.cm HISTORY: abd pain TECHNIQUE: Multiaxial CT images of the abdomen and pelvis were performed following the IV administrat ion of 90 cc of Optiray, A dose lowering technique was utilized adhering to the principles of ALARA. COMPARISON STUDY: 10/02/2021 FINDINGS: ABDOMEN: There is mild fatty liver. Gallbladder is surgically absent. Spleen, pancreas, and adrenal g lands are unremarkable. There are a few stable cysts at the kidneys. There is no hydronephrosis or re nal calculi bilaterally. No abdominal aortic aneurysm. Pelvis: Prostate is mildly enlarged. Urinary bladder is nondistended. There is mild colonic diverticu losis. No acute diverticulitis. There is mild retained stool. There is mild small bowel distention at the left upper quadrant, likely the mid jejunum. There is mild small bowel wall enhancement in this region. There is gradual transition to normal caliber small bowel in the region of the distal jejunum . There is trace adjacent free fluid. No other bowel inflammation or obstruction seen. No other free fluid, free air, or abscess. No acute osseous findings. IMPRESSION: Findings could either represent acute enteritis or early small bowel obstruction. ACT 112: Negative or not required by law. The above report was generated using voice recognition software. It may contain grammatical, syntax o r spelling errors. Electronically signed by: Quincy Grace M.D. 05/13/2025 1:27 PM
[2025-05-13 13:45] LABS: Hematocrit (blood only) 52.8 % (42.0-52.0); Hemoglobin 18.1 g/dl (14.0-18.0); Mean Corpuscular Hemoglobin 30.5 pg (25.0-34.0); Mean Corpuscular Hgb Conc 34.3 g/dL (32.0-36.0); Mean Corpuscular Volume 88.9 fL (80.0-100.0); Mean Platelet Volume 8.2 fL (9.4-12.4); Platelet Count 267 K/uL (130-400); RDW Coefficient of Variation 13.2 % (11.5-14.5); RDW Standard Deviation 42.8 fL (36.4-46.3); Red Blood Count 5.94 M/uL (4.70-6.10); White Blood Count 13.24 K/ul (4.8-10.8)
[2025-05-13] MEDS ORDERED: MoRPHine SULFATE 2 MG/ML CARP IV PRN (13:46)
--- NOTE | 2025-05-13 13:49 | Emergency Department Note ---
Impression & Plan Small bowel obstruction, Abdominal pain, Leukocytosis ED Provider Note NAME: XAVIER LACEY AGE: 64 SEX: M : 1960 ARRIVES VIA: Walk-In INFORMANT: Patient ED PROVIDER(S): Lonnie Perry DO CHIEF COMPLAINT: Abdominal pain HPI: Patient is a 64-year-old male with a past medical history of abdominal pain and small bowel obstructions who presents to the ER for abdominal pain that started yesterday. Admits to nausea but no vomiting. Denies any headache or change in vision. Pain is periumbilically and moves throughout the belly. Denies any dysuria, urgency, or frequency. He did have a small bowel movement earlier today. He notes this does feel like his previous small bowel obstructions. No vomiting. He is still intermittently passing gas. History of appendectomy and cholecystectomy. ADDITIONAL HISTORY OBTAINED: Per HPI Chronic Medical/Social Conditions Affecting Care: Per HPI PAST MEDICAL HISTORY:See Below PAST SURGICAL HISTORY:See Below FAMILY HISTORY:See Below SOCIAL HISTORY:See Below HOME MEDICATIONS:See Below ALLERGIES:See Below VITALS:See Below PHYSICAL EXAMINATION: GENERAL: Sitting up in bed, alert, well appearing, well nourished, no distress, non-toxic EYE EXAM: normal conjunctiva. OROPHARYNX: mucous membranes are moist NECK: supple, no nuchal rigidity, no adenopathy, non-tender LUNGS: Clear to auscultation. Normal chest wall mechanics HEART: no murmurs, S1 normal and S2 normal ABDOMEN: abdomen soft, old midline incision is present. Tenderness throughout abdomen, normo-active bowel sounds, no masses, no rebound or guarding. UPPER EXTREMITIES: upper extremities are grossly normal. LOWER EXTREMITIES: No pitting edema. NEURO EXAM: Normal sensorium, cranial nerves II-XII grossly intact, normal speech, no gross weakness of arms, no gross weakness of legs. MEDICAL DECISION MAKING: Patient is a 64-year-old male who presents to the ER for the below stated complaint. IV was established and blood work was obtained. Labs show leukocytosis of 13,000. Hemoglobin 18. BMP with LFTs bilirubin and lipase was unremarkable. Pro-Michael was normal. CT abdomen pelvis questions of small bowel obstruction versus enteritis. He is having significant amount of pain and this does feel like his previous bowel obstructions. He was given IV morphine IV fluids and IV Zofran. It was updated at bedside. Discussed case with the hospitalist for further evaluation management treatment. Consults/Care Managements Discussions: Per MDM Triage Nursing notes reviewed. Limited review of prior medical records performed Vital Signs: reviewed and remarkable for HTN Differential diagnosis: Differential diagnoses includes but is not limited to gastritis, peptic ulcer disease, GERD, gallbladder disease, pancreatitis, small bowel obstruction, appendicitis, diverticulitis, hernia, urinary tract infection, torsion, perforation, trauma, infectious. ER treatment provided: See below Diagnostics interpreted by me include EKG and cardiac monitoring as listed below: -Cardiac Monitoring: An order was placed for continuous cardiac monitoring. The monitor shows a rate of 80 with sinus rhythm. -ECG: none -Laboratory studies:Interpreted by me as stated above in MDM and shown below. Imaging studies: Xrays: As interpreted by me:none CTs show: CT abdomen pelvis per my pleurae interpretation shows no infiltrates in the lower lobes CT and pelvis per radiology as described above Procedures:none Critical Care: None Past Med/Surg History Problem List (Updated 05/13/25 @ 16:53 by Lonnie Perry DO) Leukocytosis (Acute) Abdominal pain (Acute) Small bowel obstruction (Acute) RENETTA (obstructive sleep apnea) Leukocytosis Polycythemia Hypertension Crohn disease Epigastric abdominal pain Medical History COVID-19 COVID-19 Failure of outpatient treatment Vomiting and diarrhea Acute dehydration Acute hypoxemic respiratory failure No significant medical problems Surgical History History of lumbar laminectomy History of cholecystectomy History of creation of ostomy History of resection of small bowel Social History Smoking Status: Never smoker Hx Alcohol Use: Yes Alcohol type: beer Alcohol Intake Frequency: 2-3 x/Week Hx Substance Use: No Preferred Language: Romanian Communication Ability: Effective 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 Beliefs That Will Affect Care: None Current Living Situation: Spouse Feels Safe at Home: Yes Assistive Devices: None Allergies Allergies Allergy/AdvReac Type Severity Reaction Status Date / Time Penicillins Allergy Unknown HIVES Verified 05/13/25 14:01 Home Meds Home Medications Medication Instructions Recorded Confirmed acetaminophen 500 mg tablet 1,000 mg PO Q6H PRN Pain 02/12/21 05/13/25 (Tylenol Extra Strength) magnesium glycinate 100 mg (as 200 mg PO HS 05/13/25 05/13/25 glycinate) tablet (Mag Glycinate) multivitamin 1 tab PO DAILY 05/13/25 05/13/25 Results & Data (ED) Vital Signs Vital Signs - 24 hr 05/13/25 12:08 05/13/25 12:15 05/13/25 12:16 Temperature 36.7 C Temperature Source Temporal Artery Scan Pulse Rate 76 89 86 Pulse Rate [Apical] Pulse Rate from SpO2 Sensor Pulse Strength Normal Respiratory Rate 16 23 Respiratory Effort / Characteristics Non-Labored Spontaneous Respiratory Depth Normal Respiratory Pattern Regular Blood Pressure 161/100 H Blood Pressure [Left Arm] Blood Pressure Mean 120 Blood Pressure Mean [Left Arm] Blood Pressure Position Sitting Pulse Oximetry 99 Oxygen Delivery Method Room Air Sepsis Recent Fever Within 48 Hours No Sepsis New/Unexplained Change in Mental Status No Sepsis Action Taken by Nursing No Action Required 05/13/25 12:16 05/13/25 12:16 05/13/25 12:16 Temperature Temperature Source Pulse Rate Pulse Rate [Apical] Pulse Rate from SpO2 Sensor Pulse Strength Respiratory Rate Respiratory Effort / Characteristics Respiratory Depth Respiratory Pattern Blood Pressure 171/100 H 171/100 H 171/100 H Blood Pressure [Left Arm] Blood Pressure Mean 126 126 126 Blood Pressure Mean [Left Arm] Blood Pressure Position Pulse Oximetry Oxygen Delivery Method Sepsis Recent Fever Within 48 Hours Sepsis New/Unexplained Change in Mental Status Sepsis Action Taken by Nursing 05/13/25 12:21 05/13/25 12:39 05/13/25 12:45 Temperature Temperature Source Pulse Rate 76 75 67 Pulse Rate [Apical] Pulse Rate from SpO2 Sensor Pulse Strength Respiratory Rate 17 17 14 Respiratory Effort / Characteristics Respiratory Depth Respiratory Pattern Blood Pressure Blood Pressure [Left Arm] Blood Pressure Mean Blood Pressure Mean [Left Arm] Blood Pressure Position Pulse Oximetry Oxygen Delivery Method Sepsis Recent Fever Within 48 Hours Sepsis New/Unexplained Change in Mental Status Sepsis Action Taken by Nursing 05/13/25 12:57 05/13/25 13:00 05/13/25 13:15 Temperature Temperature Source Pulse Rate 62 64 72 Pulse Rate [Apical] Pulse Rate from SpO2 Sensor Pulse Strength Respiratory Rate 18 17 16 Respiratory Effort / Characteristics Respiratory Depth Respiratory Pattern Blood Pressure Blood Pressure [Left Arm] Blood Pressure Mean Blood Pressure Mean [Left Arm] Blood Pressure Position Pulse Oximetry Oxygen Delivery Method Sepsis Recent Fever Within 48 Hours Sepsis New/Unexplained Change in Mental Status Sepsis Action Taken by Nursing 05/13/25 13:42 05/13/25 14:00 05/13/25 14:04 Temperature Temperature Source Pulse Rate 65 62 Pulse Rate [Apical] Pulse Rate from SpO2 Sensor Pulse Strength Respiratory Rate 27 H 16 Respiratory Effort / Characteristics Respiratory Depth Respiratory Pattern Blood Pressure 142/86 H Blood Pressure [Left Arm] Blood Pressure Mean 97 Blood Pressure Mean [Left Arm] Blood Pressure Position Pulse Oximetry Oxygen Delivery Method Sepsis Recent Fever Within 48 Hours Sepsis New/Unexplained Change in Mental Status Sepsis Action Taken by Nursing 05/13/25 14:04 05/13/25 14:07 05/13/25 14:15 Temperature Temperature Source Pulse Rate 65 Pulse Rate [Apical] 73 Pulse Rate from SpO2 Sensor 66 Pulse Strength Respiratory Rate 17 20 Respiratory Effort / Characteristics Respiratory Depth Respiratory Pattern Blood Pressure 142/86 H Blood Pressure [Left Arm] 142/86 H Blood Pressure Mean 97 Blood Pressure Mean [Left Arm] 104 Blood Pressure Position Pulse Oximetry 96 95 Oxygen Delivery Method Room Air Sepsis Recent Fever Within 48 Hours Sepsis New/Unexplained Change in Mental Status Sepsis Action Taken by Nursing 05/13/25 14:21 05/13/25 14:30 05/13/25 14:30 Temperature Temperature Source Pulse Rate 69 64 Pulse Rate [Apical] Pulse Rate from SpO2 Sensor 70 65 Pulse Strength Respiratory Rate 19 15 Respiratory Effort / Characteristics Respiratory Depth Respiratory Pattern Blood Pressure 146/97 H Blood Pressure [Left Arm] Blood Pressure Mean 108 Blood Pressure Mean [Left Arm] Blood Pressure Position Pulse Oximetry 95 97 Oxygen Delivery Method Sepsis Recent Fever Within 48 Hours Sepsis New/Unexplained Change in Mental Status Sepsis Action Taken by Nursing 05/13/25 14:30 05/13/25 14:30 05/13/25 14:45 Temperature Temperature Source Pulse Rate 68 Pulse Rate [Apical] Pulse Rate from SpO2 Sensor 69 Pulse Strength Respiratory Rate 18 Respiratory Effort / Characteristics Respiratory Depth Respiratory Pattern Blood Pressure 146/97 H 146/97 H Blood Pressure [Left Arm] Blood Pressure Mean 108 108 Blood Pressure Mean [Left Arm] Blood Pressure Position Pulse Oximetry 97 Oxygen Delivery Method Sepsis Recent Fever Within 48 Hours Sepsis New/Unexplained Change in Mental Status Sepsis Action Taken by Nursing 05/13/25 15:00 05/13/25 15:00 05/13/25 15:00 Temperature Temperature Source Pulse Rate 64 Pulse Rate [Apical] Pulse Rate from SpO2 Sensor 64 Pulse Strength Respiratory Rate 17 Respiratory Effort / Characteristics Respiratory Depth Respiratory Pattern Blood Pressure 141/101 H 141/101 H Blood Pressure [Left Arm] Blood Pressure Mean 106 106 Blood Pressure Mean [Left Arm] Blood Pressure Position Pulse Oximetry 95 Oxygen Delivery Method Sepsis Recent Fever Within 48 Hours Sepsis New/Unexplained Change in Mental Status Sepsis Action Taken by Nursing Laboratory Data 05/13/25 12:25 05/13/25 12:25 Lab Results 05/13/25 Range/Units 12:25 WBC 13.24 H (4.8-10.8) K/ul RBC 5.94 (4.70-6.10) M/uL Hgb 18.1 H (14.0-18.0) g/dl Hct 52.8 H (42.0-52.0) % MCV 88.9 (80.0-100.0) fL MCH 30.5 (25.0-34.0) pg MCHC 34.3 (32.0-36.0) g/dL RDW Std Deviation 42.8 (36.4-46.3) fL RDW Coeff of Stacey 13.2 (11.5-14.5) % Plt Count 267 (130-400) K/uL MPV 8.2 L (9.4-12.4) fL Immature Gran % (Auto) 0.2 % Neut % (Auto) 56.8 % Lymph % (Auto) 30.4 % [place] % (Auto) 11.0 % Eos % (Auto) 1.1 % Baso % (Auto) 0.5 % Neut # (Auto) 7.53 H (1.40-6.50) K/uL Lymph # (Auto) 4.02 H (1.20-3.40) K/uL [place] # (Auto) 1.45 H (0.11-0.59) K/uL Eos # (Auto) 0.15 (0.00-0.50) K/uL Baso # (Auto) 0.06 (0.00-0.20) K/uL Immature Gran # (Auto) 0.03 (0.01-0.20) K/uL Rouleaux 1+ Sodium 138 (136-145) mmol/L Potassium 4.1 (3.5-5.1) mmol/L Chloride 103 (98-107) mmol/L Carbon Dioxide 26 (21-32) mmol/L Anion Gap 9 (3-11) BUN 15 (6-23) mg/dl Creatinine 0.88 (0.6-1.4) mg/dl Est Cr Clr Drug Dosing 88.5 ml/min eGFR 96.62 BUN/Creatinine Ratio 17.0 (10-20) Glucose 92 (70-99(Fasting)) mg/dl Calcium 10.3 (8.6-10.3) mg/dl Total Bilirubin 0.7 (0.2-1.0) mg/dl AST 33 (13-39) U/L ALT 35 (7-52) U/L Alkaline Phosphatase 120 H (34-104) U/L Total Protein 7.7 (6.0-8.3) gm/dl Albumin 5.0 (3.4-5.0) gm/dl Globulin 2.7 (2.5-4.0) gm/dl Albumin/Globulin Ratio 1.9 (0.9-2) Lipase 18 (11-82) U/L Procalcitonin 0.06 (0-0.5) ng/ml Administered Medications Sodium Chloride (Nss) 1,000 mls @ 100 mls/hr IV .Q10H YARELIS Stop: 05/14/25 11:14 Last Admin: 05/13/25 15:49 Dose: 100 mls/hr Documented By: ML Discontinued Medications Sodium Chloride (Nss) 1,000 mls @ 999 mls/hr IV .Q1H1M ONE Stop: 05/13/25 13:26 Last Infusion: 05/13/25 13:30 Dose: Infused Documented By: Admin: 05/13/25 12:28 Dose: 999 mls/hr Documented By: CC Ioversol (Optiray 320 100ml) 94 ml IV ONCE ONE Stop: 05/13/25 13:08 Last Admin: 05/13/25 13:08 Dose: 94 ml Documented By: SCOTTY Morphine Sulfate (Morphine Sulfate 10 Mg/Ml Carp/Vial) 6 mg IV NOW STA Stop: 05/13/25 12:27 Last Admin: 05/13/25 12:32 Dose: 6 mg Documented By: CC Morphine Sulfate (Morphine Sulfate 4 Mg/Ml 1 Ml Carp\Vial) 4 mg IV Q1H PRN PRN Reason: Severe Pain (Rating 7,8,9,10) Stop: 05/27/25 13:45 Last Admin: 05/13/25 15:53 Dose: 4 mg Documented By: Admin: 05/13/25 14:04 Dose: 4 mg Documented By: ML Ondansetron HCl (Ondansetron Inj 2 Mg/Ml 2 Ml Vial) 4 mg IV NOW STA Stop: 05/13/25 12:27 Last Admin: 05/13/25 12:32 Dose: 4 mg Documented By: CC Ondansetron HCl (Ondansetron Inj 2 Mg/Ml 2 Ml Vial) 4 mg IV NOW STA Stop: 05/13/25 13:54 Last Admin: 05/13/25 14:04 Dose: 4 mg Documented By: ML Imaging Data Radiologist's Impression: Abdomen/Pelvis CT 05/13/25 12:[address] WITH IV CONTRAST CT DOSE: 1303.25 mGy.cm HISTORY: abd pain TECHNIQUE: Multiaxial CT images of the abdomen and pelvis were performed following the IV administration of 90 cc of Optiray, A dose lowering technique was utilized adhering to the principles of ALARA. COMPARISON STUDY: 10/02/2021 FINDINGS: ABDOMEN: There is mild fatty liver. Gallbladder is surgically absent. Spleen, pancreas, and adrenal glands are unremarkable. There are a few stable cysts at the kidneys. There is no hydronephrosis or renal calculi bilaterally. No abdominal aortic aneurysm. Pelvis: Prostate is mildly enlarged. Urinary bladder is nondistended. There is mild colonic diverticulosis. No acute diverticulitis. There is mild retained stool. There is mild small bowel distention at the left upper quadrant, likely the mid jejunum. There is mild small bowel wall enhancement in this region. There is gradual transition to normal caliber small bowel in the region of the distal jejunum. There is trace adjacent free fluid. No other bowel inflammation or obstruction seen. No other free fluid, free air, or abscess. No acute osseous findings. IMPRESSION: Findings could either represent acute enteritis or early small bowel obstruction. ACT 112: Negative or not required by law. The above report was generated using voice recognition software. It may contain grammatical, syntax or spelling errors. Electronically signed by: Quincy Grace M.D. 05/13/2025 1:27 PM Discharge Plan Visit Data Chief Complaint: Abdominal Pain Stated Complaint: STOMACH PAIN ED Provider: Lonnie Perry Discharge Problem: Small bowel obstruction, Abdominal pain, Leukocytosis Patient Disposition: Admitted As Inpatient Condition: Fair Discharge Instructions Interventions: ED Discharge Assessment Last Done: 05/13/25 16:23 Discharge Problem: Abdominal pain Qualifiers: Abdominal location: unspecified location Qualified Code(s): R10.9 - Unspecified abdominal pain Leukocytosis Qualifiers: Leukocytosis type: unspecified Qualified Code(s): D72.829 - Elevated white blood cell count, unspecified
[2025-05-13] MEDS: MoRPHine SULFATE 4 MG/ML 1 ML CARP\\VIAL IV PRN (14:04)
[2025-05-13 14:22] LABS: Rouleaux 1+
[2025-05-13 14:23] LABS: Basophils # (auto) 0.06 K/uL (0.00-0.20); Basophils % (auto) 0.5 %; Eosinophils # (auto) 0.15 K/uL (0.00-0.50); Eosinophils % (auto) 1.1 %; Immature Granulocytes # (auto) 0.03 K/uL (0.01-0.20); Immature Granulocytes % (auto) 0.2 %; Lymphocytes # (auto) 4.02 K/uL (1.20-3.40); Lymphocytes % (auto) 30.4 %; Monocytes # (auto) 1.45 K/uL (0.11-0.59); Neutrophils # (auto) 7.53 K/uL (1.40-6.50); Neutrophils % (auto) 56.8 %
--- NOTE | 2025-05-13 14:31 | History & Physical Report ---
Date of Service May 13, 2025 Assessment & Plan (1) Epigastric abdominal pain: (2) Leukocytosis: (3) Crohn disease: (4) Polycythemia: (5) Hypertension: (6) RENETTA (obstructive sleep apnea): Plan 64 year old male with PMH significant for Crohn's disease, history of diverticulitis, history of small bowel obstruction s/p resection and ostomy reversal, hypertension, fatty liver, hypertriglyceridemia, RENETTA, secondary polycythemia, chronic leukocytosis, and lumbar radiculopathy s/p lumbar laminectomy (Nov 2023) who presented to the ED on 05/13/2025 with epigastric abdominal pain and is admitted for possible SBO. Epigastric abdominal pain Patient presented with acute onset of epigastric abdominal pain since last night Labs notable for leukocytosis of 13 but patient afebrile and vitals stable - no concern for sepsis at this time CT abdomen revealed acute enteritis or early small bowel obstruction NPO MIVF Pain control with IV tylenol and dialudid PRN Stool studies ordered given episode of diarrhea and possible enteritis Surgery consult: appreciate recs Leukocytosis WBC 13K Per record review, patient has chronic leukocytosis thought to be related to Crohn's disease Baseline WBC 10-11 per records Monitor CBC Crohns disease Patient follows with [facility] and has colonoscopy scheduled for July Polycythemia Patient follows with Heme/Onc through the [place] Thought to be secondary to RENETTA Hgb 18.1 and Hct 52.8% At baseline per records Monitor CBC Hypertension Not on medications Monitor BPs RENETTA Does not wear CPAP DVT Prophylaxis: SCDs Code Status: FULL CODE - As per discussion at bedside with the patient. PCP: Sam Murray (through the [place]) Disposition: admit to med surg Patient seen in collaboration with Dr Lyn. Please see addendum. I spent a total of 75 minutes coordinating, documenting and providing care for this patient excluding time spent in the performance of separately billed services or time spent by another provider/QHP. Admission and Anticipated Discharge Date Admission Date: 05/13/2025 History of Present Illness Chief Complaint: abdominal pain Primary Care Provider: Sam Murray MD 64 year old male with PMH significant for Crohn's disease, history of diverticulitis, history of small bowel obstruction s/p resection and ostomy reversal, hypertension, fatty liver, hypertriglyceridemia, RENETTA, secondary polycythemia, chronic leukocytosis, and lumbar radiculopathy s/p lumbar laminectomy (Nov 2023) who presented to the ED on 05/13/2025 with abdominal pain. Patient reports he had sudden onset of epigastric abdominal pain around 10pm last night. He notes the pain is intermittent and severe but does not radiate anywhere. Reports associated nausea but no vomiting. Had one episode of diarrhea this morning, which isn't typical for him. Denies any sick contacts. Notes he ate corn for the first time in many years for dinner last night, but denies any food ingestion concerns. Rates current pain 6/10 after meds. Denies fevers, chills, chest pain, SOB, dysuria, weakness. Allergies Allergy/AdvReac Type Severity Reaction Status Date / Time Penicillins Allergy Unknown HIVES Verified 05/13/25 14:01 Home Medications Medication Instructions Recorded Confirmed Type acetaminophen 500 mg tablet 1,000 mg PO Q6H PRN Pain 02/12/21 05/13/25 History (Tylenol Extra Strength) magnesium glycinate 100 mg (as 200 mg PO HS 05/13/25 05/13/25 History glycinate) tablet (Mag Glycinate) multivitamin 1 tab PO DAILY 05/13/25 05/13/25 History Past Med/Surg History Problem List (Updated 05/13/25 @ 16:53 by Lonnie Perry DO) Leukocytosis (Acute) Abdominal pain (Acute) Small bowel obstruction (Acute) RENETTA (obstructive sleep apnea) Leukocytosis Polycythemia Hypertension Crohn disease Epigastric abdominal pain Medical History COVID-19 COVID-19 Failure of outpatient treatment Vomiting and diarrhea Acute dehydration Acute hypoxemic respiratory failure No significant medical problems Surgical History History of lumbar laminectomy History of cholecystectomy History of creation of ostomy History of resection of small bowel Social History Smoking Status: Never smoker Hx Alcohol Use: Yes Alcohol type: beer Alcohol Intake Frequency: 2-3 x/Week Hx Substance Use: No Preferred Language: [place] Communication Ability: Effective [employer] Required: No Beliefs That Will Affect Care: None Current Living Situation: Spouse Other Information That Helps Us Care for You: No Feels Safe at Home: Yes Safety Concerns: Feels Safe At This Time Assistive Devices: None Review of Systems Review of Systems: All systems reviewed & are unremarkable except as noted in HPI & below Physical Exam Physical Exam: General/Psych: WD/WN, sitting up in bed, conversing easily, appears uncomfortable Head: normocephalic, atraumatic Eyes: normal inspection, PERRL, conjunctivae pink, anicteric sclerae ENT: external ear and nose normal, oropharynx normal Neck: normal visual inspection, trachea midline Respiratory: normal respiratory effort, lungs clear to auscultation, no wheeze/rales/rhonchi, no accessory muscle use Cardiovascular: regular rate and rhythm, no murmur/rub/gallop, no JVD Extremities: no cyanosis or clubbing, normal peripheral pulses, no BLE edema Abdomen/GI: normal bowel sounds, soft, no hepatosplenomegaly, generalized tenderness present on palpation Neurologic/MSK: A+Ox3, motor strength 5/5, moves all extremities Skin: no rashes, normal color, warm and dry Results & Data Results & Data Vital Signs (Past 12 Hours) Vital Signs Temp Pulse Pulse Resp BP BP Pulse Ox 05/13/25 14:07 73 17 142/86 H 96 05/13/25 12:16 86 05/13/25 12:08 36.7 C 76 16 161/100 H 99 O2 Del Method 05/13/25 14:07 Room Air 05/13/25 12:16 05/13/25 12:08 Room Air Laboratory Results Short CBC 05/13/25 Range/Units 12:25 WBC 13.24 H (4.8-10.8) K/ul Hgb 18.1 H (14.0-18.0) g/dl Hct 52.8 H (42.0-52.0) % Plt Count 267 (130-400) K/uL BMP 05/13/25 12:25 Sodium 138 Potassium 4.1 Chloride 103 Carbon Dioxide 26 BUN 15 Creatinine 0.88 Glucose 92 Calcium 10.3 Liver Function 05/13/25 Range/Units 12:25 Total Bilirubin 0.7 (0.2-1.0) mg/dl AST 33 (13-39) U/L ALT 35 (7-52) U/L Alkaline Phosphatase 120 H (34-104) U/L Albumin 5.0 (3.4-5.0) gm/dl I have independently reviewed and interpreted patient's admitting labs including CBC, CMP, lipase. Diagnostic Findings Abdomen/Pelvis CT 05/13/25 12:[address] WITH IV CONTRAST CT DOSE: 1303.25 mGy.cm HISTORY: abd pain TECHNIQUE: Multiaxial CT images of the abdomen and pelvis were performed following the IV administration of 90 cc of Optiray, A dose lowering technique was utilized adhering to the principles of ALARA. COMPARISON STUDY: 10/02/2021 FINDINGS: ABDOMEN: There is mild fatty liver. Gallbladder is surgically absent. Spleen, pancreas, and adrenal glands are unremarkable. There are a few stable cysts at the kidneys. There is no hydronephrosis or renal calculi bilaterally. No ab dominal aortic aneurysm. Pelvis: Prostate is mildly enlarged. Urinary bladder is nondistended. There is mild colonic diverticulosis. No acute diverticulitis. There is mild retained stool. There is mild small bowel distention at the left upper quadrant, likely the mid jejunum. There is mild small bowel wall enhancement in this region. There is gradual transition to normal caliber small bowel in the region of the distal jejunum. There is trace adjacent free fluid. No other bowel inflammation or obstruction seen. No other free fluid, free air, or abscess. No acute osseous findings. IMPRESSION: Findings could either represent acute enteritis or early small bowel obstruction. ACT 112: Negative or not required by law. The above report was generated using voice recognition software. It may contain grammatical, syntax or spelling errors. Electronically signed by: Quincy Grace M.D. 05/13/2025 1:27 PM ECG Additional Comments: I have independently reviewed and interpreted patient's admitting EKG which revealed: NSR at a rate of 69 bpm Code Status & VTE Plan Code Status Full Code Supervising Physician Co-Signing Physician Notes 64-year-old male with PMH of appendectomy, cholecystectomy, Crohn's disease, colon resection status post stoma creation f/b reversal, ventral hernia, RENETTA/CPAP noncompliant presents with complaint of abdominal pain since last evening, mid upper belly region, 10/10 in intensity, initially intermittent in nature progressing to constant and hence presented to the ED. In the ED after pain medication, down to 6/10 in intensity during bedside exam. Patient reports 1 episodes of loose stool in the morning, denies any other family members with loose stools. Now not passing gas per pt. Patient denies fever/sore thro at/cough, reports some nausea, denies vomiting, denies chest pain. Patient reports drinking 1-2 beers here and there, denies smoking tobacco. Labs reviewed, fairly at his baseline with chronic leukocytosis and elevated hemoglobin level. CTAP suggestive of acute enteritis versus small bowel obstruction. On exam: Room air, no BLE edema, abdomen with midline old healed surgical scar, epigastric and hypogastric tenderness, ventral hernia noted, heart and lungs examination WNL. Rest of the examination as above. Likely SBO, rule out enteritis: Patient reports this feels like his past episodes of bowel obstruction, will get stool PCR if with further diarrhea, n.p.o., IV fluids, pain management, nausea control, general surgery consult. Total time spent independently: 23 minutes. I have seen and examined the patient and have discussed the case with the provider above. I agree with the assessment and plan as stated.
[2025-05-13] MEDS ORDERED: ACETAMINOPHEN 1,000 MG/100 ML VIAL IV PRN (15:06)
[2025-05-13] MEDS ORDERED: KETOROLAC TROMETHAMINE 15 MG/ML VIAL IV PRN (15:06)
--- NOTE | 2025-05-13 15:39 | Surgery Consultation ---
Date of Consultation May 13, 2025 Assessment & Plan (1) Small bowel obstruction: This is a 64y M with a PMH of HTN, Crohns, who presents to the [facility] ED on 05/13/25 with complaints of abdominal pain. Patient states his pain started last night around 10pm which was associated with nausea. Due to his symptoms he presented to the ER for further evaluation. Workup with a CT a/p revealed findings that could either represent acute enteritis or early small bowel obstruction. Patient reports a PSH including a cholecystectomy 2003 (dr. berger), ex lap for perforated sigmoid in 2003 with hartmans then subsequent reversal with appendectomy (dr. perez). Patient reports a history of ~3-4 SBO in the past, thinks his last one was ~ 10 years ago. He reports difficulty with NGT insertion in the past and tells me dr. victoria came in to place it on one occasion. He denies any flatus. Had a small BM this AM. Patient says this feels on par with his prior obstructions in the past which were all managed conservatively. Today in the ER patient's labs show WBC 13.2, Hbg 18, Cr 0.8. Patient is hypertensive 140-160/100s with a stable HR 60-70s. On exam patient has some abdominal distention and generalized discomfort to palpation, slightly worse in the LLQ and mid abdomen. Discussed bowel rest with keeping patient NPO with IVF. Given patient remains with pain, nausea, and distention I suggested an NGT may be beneficial to him. He reports a history of difficult NGT insertion in the past. He wishes to defer on this for the time being, but I would have a low threshold to place one if his symptoms should worsen. Asked medicine to add on a lactate to follow up upon as well. Hopefully patient will improve with conservative measures as he has in the past. We will continue to follow along closely. History of Present Illness History of Present Illness This is a 64y M with a PMH of HTN, Crohns, who presents to the [facility] ED on 05/13/25 with complaints of abdominal pain. Patient states his pain started last night around 10pm. He rated it a 10/10 overnight. The pain was associated with nausea no vomiting. Due to his symptoms he presented to the ER for further evaluation. Workup with a CT a/p revealed findings that could either represent acute enteritis or early small bowel obstruction. Patient reports a PSH including a cholecystectomy 2003 (dr. berger), ex lap for perforated sigmoid in 2003 with hartmans then subsequent reversal with appendectomy (dr. perez). Patient reports a history of SBO in the past, thinks his last one was ~ 10 years ago. He believes he has had 3-4 in the past and required NGT for 1-2 of them. He reports difficulty with NGT insertion in the past and tells me dr. victoria came in to place it on one occasion. He denies any flatus. Had a small BM this AM. No blood in stool or urine. No fevers/chills, CP/SOB. Reports + bloating and pain and nausea. Scheduled for outpatient colonoscopy in july of this year, follows with [facility]. Denies any sick contacts or eating any raw/under cooked food to his knowledge. Patient says this feels on par with his prior obstructions in the past which were all managed conservatively. Allergies Allergy/AdvReac Type Severity Reaction Status Date / Time Penicillins Allergy Unknown HIVES Verified 05/13/25 14:01 Home Medications Medication Instructions Recorded Confirmed Type acetaminophen 500 mg tablet 1,000 mg PO Q6H PRN Pain 02/12/21 05/13/25 History (Tylenol Extra Strength) magnesium glycinate 100 mg (as 200 mg PO HS 05/13/25 05/13/25 History glycinate) tablet (Mag Glycinate) multivitamin 1 tab PO DAILY 05/13/25 05/13/25 History Patient History Medical History COVID-19 COVID-19 Failure of outpatient treatment Vomiting and diarrhea Acute dehydration Acute hypoxemic respiratory failure No significant medical problems Surgical History History of lumbar laminectomy History of cholecystectomy History of creation of ostomy History of resection of small bowel Social History Smoking Status: Never smoker Hx Alcohol Use: Yes Alcohol type: beer Alcohol Intake Frequency: 2-3 x/Week Hx Substance Use: No Preferred Language: Citizen Of [place] Communication Ability: Effective Information Assoc Required: No Beliefs That Will Affect Care: None Current Living Situation: Spouse Feels Safe at Home: Yes Assistive Devices: None Review of Systems Constitutional: no fever and no chills Respiratory: no dyspnea Cardiovascular: no chest pain Gastrointestinal: + abdominal pain, + bloating and + nause a; no vomiting and no blood in stools Genitourinary: no problem reported Physical Exam Physical Exam: awake, alert, appears to have pain Respiratory: normal respiratory effort Gastrointestinal (Abdomen): Inspection/Auscultation: + abdomen distended Percussion/Palpation: + abdomen tender (tender throughout, appeared slightly worse in LLQ and mid abdomen) prior LLQ scar and low midline scars noted Results & Data Vital Signs (Past 12 Hours) Vital Signs Temp Pulse Pulse Resp BP BP Pulse Ox 05/13/25 14:07 73 17 142/86 H 96 05/13/25 12:16 86 05/13/25 12:08 98.1 F 76 16 161/100 H 99 O2 Del Method 05/13/25 14:07 Room Air 05/13/25 12:16 05/13/25 12:08 Room Air Diagnostic Findings ABDOMEN AND PELVIS CT WITH IV CONTRAST CT DOSE: 1303.25 mGy.cm HISTORY: abd pain TECHNIQUE: Multiaxial CT images of the abdomen and pelvis were performed following the IV administration of 90 cc of Optiray, A dose lowering technique was utilized adhering to the principles of ALARA. COMPARISON STUDY: 10/02/2021 FINDINGS: ABDOMEN: There is mild fatty liver. Gallbladder is surgically absent. Spleen, pancreas, and adrenal glands are unremarkable. There are a few stable cysts at the kidneys. There is no hydronephrosis or renal calculi bilaterally. No abdominal aortic aneurysm. Pelvis: Prostate is mildly enlarged. Urinary bladder is nondistended. There is mild colonic diverticulosis. No acute diverticulitis. There is mild retained stool. There is mild small bowel distention at the left upper quadrant, likely the mid jejunum. There is mild small bowel wall enhancement in this region. There is gradual transition to normal caliber small bowel in the region of the distal jejunum. There is trace adjacent free fluid. No other bowel inflammation or obstruction seen. No other free fluid, free air, or abscess. No acute osseous findings. IMPRESSION: Findings could either represent acute enteritis or early small bowel obstruction. ACT 112: Negative or not required by law. The above report was generated using voice recognition software. It may contain grammatical, syntax or spelling errors. Electronically signed by: Quincy Grace M.D. 05/13/2025 1:27 PM PG Care Time/CCT Total # of Minutes Spent Total Time Spent with Patient: Total time spent is greater than 50% in coordination of care (as documented) at patient's floor/unit and/or counseling patient: Coding Level of Care Code 76977 IN/OBS CONSULT LVL 3,45M Diagnoses Small bowel obstruction K56.609
[2025-05-13] MEDS: SODIUM CHLORIDE 0.9% 1,000 ML IV SCH (15:49)
[2025-05-13] MEDS: HYDROmorphone INJ 0.5 MG/0.5 ML SYR IV PRN (17:41)
[2025-05-13] MEDS ORDERED: ONDANSETRON INJ 2 MG/ML 2 ML VIAL IV PRN (20:00)
[2025-05-13] MEDS: ACETAMINOPHEN 1,000 MG/100 ML VIAL IV PRN (20:25)
[2025-05-13] MEDS: MAGNESIUM OXIDE 400 MG TAB PO SCH (20:28)
[2025-05-14] MEDS: HYDROmorphone INJ 0.5 MG/0.5 ML SYR IV PRN (01:39)
[2025-05-14 08:40] LABS: Hematocrit (blood only) 48.9 % (42.0-52.0); Hemoglobin 16.5 g/dl (14.0-18.0); Mean Corpuscular Hemoglobin 30.7 pg (25.0-34.0); Mean Corpuscular Hgb Conc 33.7 g/dL (32.0-36.0); Mean Corpuscular Volume 91.1 fL (80.0-100.0); Mean Platelet Volume 8.2 fL (9.4-12.4); Platelet Count 238 K/uL (130-400); RDW Coefficient of Variation 13.2 % (11.5-14.5); RDW Standard Deviation 43.8 fL (36.4-46.3); Red Blood Count 5.37 M/uL (4.70-6.10); White Blood Count 9.24 K/ul (4.8-10.8)
[2025-05-14 09:04] LABS: BUN Creatinine Ratio 14.3 (10-20); Calcium 8.4 mg/dl (8.6-10.3); Creatinine Clr Calc Pharmacy 86.2 ml/min; Potassium 4.2 mmol/L (3.5-5.1)
--- NOTE | 2025-05-14 09:14 | Surgery Progress Note ---
Date of Service May 14, 2025 Assessment & Plan (1) Small bowel obstruction: Plan: Clinically doing better. Will obtain a KUB. I think it is okay to go ahead and start clear liquid diet. Dr. Delgado is on-call for the weekend with any concerns or questions but no urgent indications for surgical intervention at this time. Will continue to follow along while he is in the hospital. (2) Crohn disease: Admission and Anticipated Discharge Date Admission Date: May 13, 2025 Subjective Patient seen. Feeling significantly better than yesterday. Minimal discomfort. No nausea. Physical Exam Constitutional: WD/WN, vitals as above no acute distress and not ill appearing Eyes: PERRL, conjunctivae normal, anicteric sclerae EOM intact bilaterally ENMT: external ear and nose normal, oropharynx normal Ears: no hearing impairment Neck: trachea midline, no thyromegaly Respiratory: normal respiratory effort; no respiratory distress and does not use accessory muscles Cardiovascular: Rate/Rhythm: regular rate and regular rhythm Gastrointestinal (Abdomen): Soft. Nondistended. Minimal tenderness. Skin: no rashes, warm and dry Psychiatric: Orientation: alert, oriented x 3 and cooperative Results & Data Vital Signs (Past 12 Hours) Vital Signs Temp Pulse Resp BP Pulse Ox O2 Del Method 05/14/25 06:56 36.5 C 89 16 139/86 96 Room Air PG Care Time/CCT Total # of Minutes Spent Total Time Spent with Patient: Total time spent is greater than 50% in coordination of care (as documented) at patient's floor/unit and/or counseling patient: Coding Level of Care Code 07042 SUB INP/OBS CARE 12/12MIN Diagnoses Small bowel obstruction K56.609 Crohn disease K50.90
--- NOTE | 2025-05-14 10:10 | XRay Report ---
KUB HISTORY: eval for improvment SBO COMPARISON STUDY: CT scan yesterday FINDINGS: Stable right upper quadrant surgical clips. There is mild retained stool. No evidence of elena wel obstruction seen. No gross free air. IMPRESSION: No acute findings seen. ACT 112: Negative or not required by law. The above report was generated using voice recognition software. It may contain grammatical, syntax o r spelling errors. Electronically signed by: Quincy Grace M.D. 05/14/2025 10:09 AM
--- NOTE | 2025-05-14 14:03 | Hospitalist Progress Note ---
Date of Service May 14, 2025 Assessment & Plan (1) Epigastric abdominal pain: (2) Leukocytosis: (3) Crohn disease: (4) Polycythemia: (5) Hypertension: (6) RENETTA (obstructive sleep apnea): Plan 64 year old male with PMH significant for Crohn's disease, history of diverticulitis, history of small bowel obstruction s/p resection and ostomy reversal, hypertension, fatty liver, hypertriglyceridemia, RENETTA, secondary polycythemia, chronic leukocytosis, and lumbar radiculopathy s/p lumbar laminectomy (Nov 2023) who presented to the ED on 05/13/2025 with epigastric abdominal pain and is admitted for possible SBO. 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 Currently normal CT abdomen revealed acute enteritis or early small bowel obstruction advancing diet as tolerated Pain control with IV tylenol and Dilaudid PRN Stool studies ordered given episode of diarrhea and possible enteritis Surgery consult: appreciate recs 05/14- advancing diet, states a little nauseous with clears in the AM Leukocytosis WBC 13K Per record review, patient has chronic leukocytosis thought to be related to Crohn's disease Baseline WBC 10-11 per records Monitor CBC Currently resolved Crohns disease Patient follows with [facility] and has colonoscopy scheduled for July Polycythemia Patient follows with Heme/Onc through the [place] Thought to be secondary to RENETTA Hgb 18.1 and Hct 52.8% At baseline per records Monitor CBC Hypertension Not on medications Monitor BPs RENETTA Does not wear CPAP DVT Prophylaxis: SCDs Code Status: FULL CODE - As per discussion at bedside with the patient. PCP: Sam Murray (through the [place]) Admission and Anticipated Discharge Date Admission Date: May 13, 2025 Subjective Pt was seen in the PM States that he has not been able to tolerate the clears, tried and got nauseous Not passing gas yet Review of Systems Review of Systems: All systems reviewed & are unremarkable except as noted in Subjective Physical Exam Physical Exam: General: Alert, oriented. No acute distress HEENT: NC/AT CV: RRR Resp: Breath sounds clear bilaterally, no increased effort of breathing Abdomen: Soft, tender Extremities: No edema in lower extremities bilaterally. Results & Data Results & Data Vital Signs (Past 12 Hours) Vital Signs Temp Pulse Resp BP Pulse Ox O2 Del Method 05/14/25 06:56 36.5 C 89 16 139/86 96 Room Air
[2025-05-14] MEDS ORDERED: POLYETHYLENE (MIRALAX) 17 GM PACK PO PRN (17:00)
[2025-05-14] MEDS: DOCUSATE SODIUM 100 MG CAP PO SCH (20:45)
[2025-05-15 07:13] VITALS: BP 130/80; RESP 18; TEMP 97.9; O2SAT 96
[2025-05-15 07:30] LABS: Basophils # (auto) 0.03 K/uL (0.00-0.20); Basophils % (auto) 0.3 %; Eosinophils # (auto) 0.18 K/uL (0.00-0.50); Eosinophils % (auto) 1.8 %; Hematocrit (blood only) 50.6 % (42.0-52.0); Hemoglobin 17.4 g/dl (14.0-18.0); Immature Granulocytes # (auto) 0.03 K/uL (0.01-0.20); Immature Granulocytes % (auto) 0.3 %; Lymphocytes # (auto) 2.72 K/uL (1.20-3.40); Lymphocytes % (auto) 27.7 %; Mean Corpuscular Hemoglobin 30.8 pg (25.0-34.0); Mean Corpuscular Hgb Conc 34.4 g/dL (32.0-36.0); Mean Corpuscular Volume 89.6 fL (80.0-100.0); Mean Platelet Volume 8.4 fL (9.4-12.4); Monocytes # (auto) 0.98 K/uL (0.11-0.59); Neutrophils # (auto) 5.89 K/uL (1.40-6.50); Neutrophils % (auto) 59.9 %; Platelet Count 262 K/uL (130-400); RDW Coefficient of Variation 12.8 % (11.5-14.5); RDW Standard Deviation 42.5 fL (36.4-46.3); Red Blood Count 5.65 M/uL (4.70-6.10); White Blood Count 9.83 K/ul (4.8-10.8)
[2025-05-15 07:50] LABS: Albumin Globulin Ratio 1.8 (0.9-2); BUN Creatinine Ratio 9.4 (10-20); Bilirubin,Total 0.7 mg/dl (0.2-1.0); Calcium 9.3 mg/dl (8.6-10.3); Creatinine Clr Calc Pharmacy 81.7 ml/min; Globulin 2.4 gm/dl (2.5-4.0); Phosphorus 2.2 mg/dl (2.5-4.9); Potassium 4.3 mmol/L (3.5-5.1); Total Protein 6.8 gm/dl (6.0-8.3)
--- NOTE | 2025-05-15 09:17 | Surgery Progress Note ---
Date of Service May 15, 2025 Assessment & Plan (1) Small bowel obstruction: Plan: Clinically patient is doing better and improving. Patient can be advanced to a low fiber diet this morning, if he is able to tolerate without any issues, he is OK from a surgical standpoint to be discharged later today. Discussed with patient to follow up with his GI provider. He also does have a colonoscopy scheduled for this upcoming July (2) Crohn disease: Admission and Anticipated Discharge Date Admission Date: May 13, 2025 Supervising Physician Co-Signing Physician Notes Patient seen and examined, agree with above. History of Crohn's s/p resection admitted with partial small bowel obstruction versus Crohn's flare. Doing well, multiple bowel movements, tolerating diet. Abdomen soft, nondistended. Diet as tolerated, follow-up with GI as an outpatient as scheduled for colonoscopy and to discuss possible Crohn's treatment. Subjective Patient sitting up in chair this morning, states he feels good Tolerating clears, passing gas, having BMs. Wants something more substantial to eat this morning and would like to go home. Denies any nausea or vomiting overnight Physical Exam Constitutional: WD/WN, vitals as above Respiratory: normal respiratory effort, lungs clear to auscultation Cardiovascular: RRR, no murmur, no edema Gastrointestinal (Abdomen): Abdomen soft, nondistended, nontender to palpation. No rebound, guarding, or signs of peritonitis Skin: no rashes, warm and dry Results & Data Vital Signs (Past 12 Hours) Vital Signs Temp Pulse Resp BP Pulse Ox O2 Del Method 05/15/25 07:13 36.6 C 75 18 130/80 96 Room Air PG Care Time/CCT Total # of Minutes Spent Total Time Spent with Patient: Total time spent is greater than 50% in coordination of care (as documented) at patient's floor/unit and/or counseling patient: Coding [place] [address] SUB INP/OBS CARE 12/12MIN Patient Type Established Medical Decision Making Straight Forward Diagnoses Small bowel obstruction K56.609 Crohn disease K50.90
[2025-05-15] MEDS: POT PHOSPHATE MONOBASIC W/ SOD TAB PO SCH (09:37)
--- NOTE | 2025-05-15 12:20 | Discharge Summary ---
Discharge Summary Date of Service May 15, 2025 Principal Dx & Hospital Course #1 = Principal Diagnosis (1) Epigastric abdominal pain: (2) Leukocytosis: (3) Crohn disease: (4) Polycythemia: (5) Hypertension: (6) RENETTA (obstructive sleep apnea): Plan 64 year old male with PMH significant for Crohn's disease, history of diverticulitis, history of small bowel obstruction s/p resection and ostomy reversal, hypertension, fatty liver, hypertriglyceridemia, RENETTA, secondary polycythemia, chronic leukocytosis, and lumbar radiculopathy s/p lumbar laminectomy (Nov 2023) who presented to the ED on 05/13/2025 with epigastric abdominal pain and is admitted for possible SBO. Epigastric abdominal pain Patient presented with acute onset of epigastric abdominal pain [employer] Labs notable for leukocytosis of 13 but patient afebrile and vitals stable - no concern for sepsis at this time. No leukocytosis on discharge. CT abdomen revealed acute enteritis or early small bowel obstruction advancing diet as tolerated Pain control with IV tylenol and Dilaudid PRN Stool studies ordered given episode of diarrhea and possible enteritis- remained uncollected. Pt with multiple bowel movements before discharge. Surgery consult: appreciate recs. Per Dr. Delgado on the day of discharge: "...History of Crohn's s/p resection admitted with partial small bowel obstruction versus Crohn's flare. Doing well, multiple bowel movements, tolerating diet. Abdomen soft, nondistended. Diet as tolerated, follow-up with GI as an outpatient as scheduled for colonoscopy and to discuss possible Crohn's treatment..." Close GI and pcp followup after discharge Hypophosphatemia supplement as needed- discharged with 1 more day of supplements Hypomagnesemia replete as needed wnl on discharge Leukocytosis WBC 13K Per record review, patient has chronic leukocytosis thought to be related to Crohn's disease Baseline WBC 10-11 per records Monitor CBC Currently resolved on discharge Crohns disease Patient follows with [facility] GI and has colonoscopy scheduled for July Followup as above Polycythemia Patient [facility] Thought to be secondary to RENETTA Hgb 18.1 and Hct 52.8% At baseline per records Monitor CBC PCP and specialist followup Hypertension Not on medications Monitor BPs RENETTA Does not wear CPAP Notes For Next Care Provider As above Medication Changes From Visit Phos supplements for 1 more day Admission HPI Per Admitting Provider 64 year old male with PMH significant for Crohn's disease, history of diverticulitis, history of small bowel obstruction s/p resection and ostomy reversal, hypertension, fatty liver, hypertriglyceridemia, RENETTA, secondary po lycythemia, chronic leukocytosis, and lumbar radiculopathy s/p lumbar laminectomy (Nov 2023) who presented to the ED on 05/13/2025 with abdominal pain. Patient reports he had sudden onset of epigastric abdominal pain around 10pm last night. He notes the pain is intermittent and severe but does not radiate anywhere. Reports associated nausea but no vomiting. Had one episode of diarrhea this morning, which isn't typical for him. Denies any sick contacts. Notes he ate corn for the first time in many years for dinner last night, but denies any food ingestion concerns. Rates current pain 6/10 after meds. Denies fevers, chills, chest pain, SOB, dysuria, weakness. Admission Exam Per Admitting Provider General/Psych: WD/WN, sitting up in bed, conversing easily, appears uncomfortable Head: normocephalic, atraumatic Eyes: normal inspection, PERRL, conjunctivae pink, anicteric sclerae ENT: external ear and nose normal, oropharynx normal Neck: normal visual inspection, trachea midline Respiratory: normal respiratory effort, lungs clear to auscultation, no wheeze/rales/rhonchi, no accessory muscle use Cardiovascular: regular rate and rhythm, no murmur/rub/gallop, no JVD Extremities: no cyanosis or clubbing, normal peripheral pulses, no BLE edema Abdomen/GI: normal bowel sounds, soft, no hepatosplenomegaly, generalized tenderness present on palpation Neurologic/MSK: A+Ox3, motor strength 5/5, moves all extremities Skin: no rashes, normal color, warm and dry Discharge Exam General: Alert, oriented. No acute distress HEENT: NC/AT CV: RRR Resp: Breath sounds clear bilaterally, no increased effort of breathing Abdomen: Soft, tender Extremities: No edema in lower extremities bilaterally. Updated Medication List Medication Instructions Recorded Confirmed Type acetaminophen 500 mg tablet 1,000 mg PO Q6H PRN Pain 02/12/21 05/13/25 History (Tylenol Extra Strength) magnesium glycinate 100 mg (as 200 mg PO HS 05/13/25 05/13/25 History glycinate) tablet (Mag Glycinate) multivitamin 1 tab PO DAILY 05/13/25 05/13/25 History ondansetron 4 mg disintegrating 4 mg PO Q8H PRN nausea and 05/15/25 Rx tablet vomiting #10 tabs sodium di- and 1 tab PO QID #4 tabs 05/15/25 Rx monophosphate-potassium phos monobasic 250 mg tablet (Phospha Neutral) Hospital Stay Data Consultations 05/13/25 13:46 ED Decision to Admit Stat 05/13/25 16:40 Consult General Surgery Routine Diagnostic Imagining Performed 05/13/25 12:16 CT abd pelvis IV con only Stat Abdomen/Pelvis CT 05/13/25 12:[address] WITH IV CONTRAST CT DOSE: 1303.25 mGy.cm HISTORY: abd pain TECHNIQUE: Multiaxial CT images of the abdomen and pelvis were performed following the IV administration of 90 cc of Optiray, A dose lowering technique was utilized adhering to the principles of ALARA. COMPARISON STUDY: 10/02/2021 FINDINGS: ABDOMEN: There is mild fatty liver. Gallbladder is surgically absent. Spleen, pancreas, and adrenal glands are unremarkable. There are a few stable cysts at the kidneys. There is no hydronephrosis or renal calculi bilaterally. No abdominal aortic aneurysm. Pelvis: Prostate is mildly enlarged. Urinary bladder is nondistended. There is mild colonic diverticulosis. No acute diverticulitis. There is mild retained stool. There is mild small bowel distention at the left upper quadrant, likely the mid jejunum. There is mild small bowel wall enhancement in this region. There is gradual transition to normal caliber small bowel in the region of the distal jejunum. There is trace adjacent free fluid. No other bowel inflammation or obstruction seen. No other free fluid, free air, or abscess. No acute osseous findings. IMPRESSION: Findings could either represent acute enteritis or early small bowel obstruction. ACT 112: Negative or not required by law. The above report was generated using voice recognition software. It may contain grammatical, syntax or spelling errors. Electronically signed by: Quincy Grace M.D. 05/13/2025 1:27 PM KUB X-Ray 05/14/25 08:58 KUB HISTORY: eval for improvment SBO COMPARISON STUDY: CT scan yesterday FINDINGS: Stable right upper quadrant surgical clips. There is mild retained stool. No evidence of bowel obstruction seen. No gross free air. IMPRESSION: No acute findings seen. ACT 112: Negative or not required by law. The above report was generated using voice recognition software. It may contain grammatical, syntax or spelling errors. Electronically signed by: Quincy Grace M.D. 05/14/2025 10:09 AM Discharge Instructions Given to Patient (Per Discharging Provider) Mr. Reyes, We treated you for a small bowel obstruction. You were seen by the General s baileyeon who recommended advancing your diet and you tolerated that well. Please continue with the low fiber diet at home and if tolerating well, you can advance to your regular diet. The General Surgeon would like you to follow up with Gastroenterology after discharge as scheduled for a colonoscopy and further possible Crohn's treatment. Your phosphorus levels were also low. Please continue with the prescribed supplement for an additional day. Follow up with your primary care provider for continued monitoring of your levels. Again, please keep close follow up with your primary care provider after discharge. Please do not hesitate to come back to the emergency room if your symptoms worsen or return. It was a pleasure taking care of you while you were here. Total Time Total Time Spent Total Time Spent (In Minutes): 60
[2025-05-15 12:57] VITALS: PULSE 73
== END 2025-05-15 13:17 | disposition home or self-care (01) | DRG 389 ==
LOC: ED 12:07 → SUATTDRO 15:12 → 3N 15:12